=== PATIENT | male | born 1940 | race Caucasian/White ===

== ENCOUNTER 2020-03-25 11:03 | Outpatient (CLI) | payer MEDICARE, OTHER, SELFPAY ==
--- NOTE | ~2020-03-25 | MR_ITS ---
EXAMINATION: MR lumbar spine wo con DATE: 03/25/2020 12:01 INDICATION: Lumbar spondylosis, unspecified. TECHNIQUE: Magnetic resonance imaging (MRI) of the lumbar spine was performed without intravenous con trast. Sequences included sagittal T2-weighted FSE, sagittal T2-weighted FS FSE, sagittal T1-weighted FSE, and axial T2-weighted FSE. COMPARISON: Lumbar spine radiographs 02/26/2019 FINDINGS: There is 4 degrees levocurvature of lumbar spine. There is 4 mm retrolisthesis of L2 on L3, 3 mm retrolisthesis of L3 on L4, and 6 mm anterolisthesis of L4 on L5. Vertebral body heights are no rmal. There is severely decreased disc height at L2-L3 and L5-S1 and moderately decreased disc height at L1-L2, L3-L4, and L4-L5. The distal spinal cord signal intensity is normal. The conus medullaris is at L1. The following disc levels are specifically discussed: L1-L2: The disc is bulging. There is mild bilateral facet joint osteoarthritis. There is mild bilater al neural foraminal stenosis. There is mild central canal stenosis. L2-L3: The disc is bulging and has an annular fissure. There is mild bilateral facet joint osteoarthr itis. There is moderate bilateral neural foraminal stenosis. There is mild central canal stenosis. L3-L4: The disc is bulging and has an annular fissure. There is mild bilateral facet joint osteoarthr itis. There is moderate bilateral neural foraminal stenosis. There is mild central canal stenosis. L4-L5: The disc is bulging and has an annular fissure. There is severe bilateral facet joint osteoart hritis. There is moderate bilateral neural foraminal stenosis. There is mild central canal stenosis. L5-S1: The disc is bulging and has an annular fissure. There is moderate bilateral facet joint osteoa rthritis. There is moderate bilateral neural foraminal stenosis. There is mild central canal stenosis . IMPRESSION: 1. Severe lumbar spondylosis. Reviewed, dictated and finalized at location A.
== END 2020-03-25 11:04 | disposition home or self-care (01) ==
PROVIDERS: PCP Internal Medicine; Visit Provider Internal Medicine
DX: M47.896 Other spondylosis, lumbar region (principal)
CPT/HCPCS: 72148

== ENCOUNTER 2020-06-28 08:48 | Outpatient (CLI) | payer MEDICARE, OTHER, SELFPAY ==
--- NOTE | 2020-06-28 08:53 | ECHO_ITS ---
Patient Info Name: Jean Carlos Trinh Age: 80 years : 1940 Gender: Male Ht: 69 in Wt: 164 lbs BSA: 1.91 m2 HR: 72 bpm BP: 171 / 89 mmHg Technical Quality: Fair Exam Date: 06/28/2020 9:18 AM Exam Location: [facility] Patient Status: Outpatient Admit Date: 06/28/2020 Staff Ordering Physician: Dave Rain MD Hot Box Spotter: Santy Rebolledo RDCS, RT Attending Provider: Dave Rain MD Exam Type: CA echo doppler color flow Study Info Indications I35.0 - Nonrheumatic aortic (valve) stenosis Complete two-dimensional, color flow and Doppler transthoracic echocardiogram is performed. Strain analysis performed. Summary 1. Complete two-dimensional, color flow and Doppler transthoracic echocardiogram is performed. 2. Left ventricular chamber dimension is normal. 3. Ventricular septum is sigmoid shaped. No LVOT obstruction. 4. Left ventricular systolic function is normal, estimated at 65-70%. 5. There is mildly increased left ventricular wall thickness. 6. The left ventricular diastolic function is grade I diastolic dysfunction. 7. E/e' 13 is mildly elevated. 8. Global longitudinal strain is normal at -17.1%. 9. Left atrial chamber dimension is mildly enlarged. 10. The aortic valve is not well visualized. 11. There is moderate aortic valve sclerosis. 12. There is mild to moderate aortic valve stenosis based on a peak velocity of 241 cm/s, mean gradient of 14 mmHg, and aortic valve area of 1.4 cm2. 13. There is mild aortic valve regurgitation. 14. The mitral valve has moderately calcified leaflets and moderately calcified annulus. Left Ventricle Ventricular septum is sigmoid shaped. No LVOT obstruction. E/e' 13 is mildly elevated. Global longitudinal strain is normal at -17.1%. Left ventricular chamber dimension is normal. Left ventricular systolic function is normal, estimated at 65-70%. There is mildly increased left ventricular wall thickness. The left ventricular diastolic function is grade I diastolic dysfunction. Right Ventricle Right ventricular chamber dimension is normal. Right ventricular systolic function is normal. Left Atria Left atrial chamber dimension is mildly enlarged. Right Atria Right atrial chamber dimension is normal. Aortic Valve There is mild to moderate aortic valve stenosis based on a peak velocity of 241 cm/s, mean gradient of 14 mmHg, and aortic valve area of 1.4 cm2. Cannot determine number of aortic valve leaflets. The aortic valve is not well visualized. There is moderate aortic valve sclerosis. There is mild aortic valve regurgitation. Pulmonic Valve There is no pulmonic regurgitation. Mitral Valve The mitral valve has moderately calcified leaflets and moderately calcified annulus. There is no mitral valve stenosis. There is no mitral valve regurgitation. Tricuspid Valve There is no tricuspid valve regurgitation. Pericardium/Pleural There is no pericardial effusion. Inferior Vena Cava Normal inferior vena cava with >50% collapse upon inspiration consistent with normal right atrial pressure, 5 mmHg. Aorta The aortic root size at the sinus of Valsalva is normal. Left Ventricular Outflow Tract Name Value Normal LVOT 2D LVOT Diameter
== END 2020-06-28 08:49 | disposition home or self-care (01) ==
PROVIDERS: PCP Internal Medicine; Visit Provider Internal Medicine
DX: I35.0 Nonrheumatic aortic (valve) stenosis (principal); I35.1 Nonrheumatic aortic (valve) insufficiency; I36.1 Nonrheumatic tricuspid (valve) insufficiency; I34.0 Nonrheumatic mitral (valve) insufficiency
CPT/HCPCS: 93306

== ENCOUNTER 2020-10-28 09:08 | Outpatient (CLI) | payer MEDICARE, OTHER, SELFPAY ==
--- NOTE | ~2020-10-28 | CT_ITS ---
EXAMINATION: CT chest abdomen pelvis wo con DATE: 10/28/2020 09:51 INDICATION: Asbestos exposure. Shortness of breath. Nausea, diarrhea TECHNIQUE: Computed tomography (CT) of the chest, abdomen, and pelvis was performed without intraveno us contrast. Automated exposure control and iterative reconstruction technique were employed. Exam do se: 574.00 mGy-cm total exam DLP. COMPARISON: None FINDINGS: CHEST CT: Heart size is normal. Prominent coronary artery calcifications. Normal caliber of the thoracic aorta. There are thoracic aortic and great vessel atherosclerotic calcifications. Normal size and homogeneous density of the thyroid gland. No hilar or mediastinal mass lesion or lymphadenopathy. No pericardial or pleural effusion. Small sli ding hiatal hernia. There are occasional calcified pleural plaques in the posterior mid and lower left thorax, consistent with prior asbestos exposure. No pulmonary infiltrate or consolidation or pulmonary mass lesion. ABDOMEN/PELVIS CT: There are calcifications of the head and uncinate process and body of the pancreas, consistent with c hronic pancreatitis. The liver, gallbladder, bile ducts, spleen, pancreas and pancreatic duct are unremarkable otherwise. Normal morphology of the adrenal glands. 2.7 mm nonobstructing mid left renal calculus. 5 mm and 3 mm nonobstructing lower pole left renal calculi. Probable focal arterial calcification in the lower pole of the right kidney. There are stones in the dependent aspect of both sides of the urinary bladder, measuring 3 mm on the right Up to 9 mm on the left. There is prostate enlargement and prominent prostate calcification. There is extensive atherosclerotic calcification of the abdominal aorta and prominent calcification a t the origins of the renal arteries. No abdominal aortic aneurysm. Iliac and femoral artery calcifica tions. No intraperitoneal or retroperitoneal or pelvic mass lesion or adenopathy or ascites. Normal appendix. Diverticulosis of the sigmoid and descending colon and to a lesser extent right colon. No CT evidence of diverticulitis. No bowel obstruction, bowel wall thickening, pneumatosis or intraperitoneal free air. No suspicious osteolytic or osteoblastic lesions are noted. There is degenerative disc disease throug hout the lumbar and lumbosacral area. There is grade 1 anterolisthesis at L4-5 due to degenerative ch jolie at the apophyseal joints. IMPRESSION: Calcified pleural plaques in the mid and lower posterior left chest, consistent with jagdish or asbestos exposure Pancreatic calcifications suggesting chronic pancreatitis Left nonobstructing nephrolithiasis Bladder stones Diverticulosis of the colon Reviewed, dictated and finalized at Location A. Reviewed, dictated and finalized at location B. 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
== END 2020-10-28 09:09 | disposition home or self-care (01) ==
LOC: ANHIMG 09:12
PROVIDERS: PCP Internal Medicine; Visit Provider Internal Medicine
DX: R19.4 Change in bowel habit (principal); Z77.090 Contact with and (suspected) exposure to asbestos; R91.8 Other nonspecific abnormal finding of lung field; N20.0 Calculus of kidney; N21.0 Calculus in bladder; K57.90 Diverticulosis of intestine, part unspecified, without perforation or abscess without bleeding
CPT/HCPCS: 71250; 74176

== ENCOUNTER 2021-01-06 09:20 | Outpatient (CLI) | payer MEDICARE, OTHER, SELFPAY ==
[2021-01-06 10:30] VITALS: PULSE 91; O2SAT 98
[2021-01-06 10:35] VITALS: PULSE 112; O2SAT 95
[2021-01-06 10:45] VITALS: PULSE 93; O2SAT 98
--- NOTE | 2021-01-09 12:41 | WPDPFTINT ---
PFT Procedure Performed PFT Procedure Performed Spirometry with Pre/Post Bronchodilator Plethysmography (Lung Vol) Diffusing Cap (DLCO) Flow Vol Loop PFT Interpretation This is a pulmonary function test with pre and post-bronchodilator spirometry, plethysmography and diffusing capacity. The test was performed and results interpreted in accordance with the 2019 and 2005 ATS/ERS Task Force guidelines respectively using the Global Lung Function Initiative-2012 reference equations. Patient demonstrated good effort and cooperation. Reproducibility criteria were met. The quality of the pre bronchodilator spirometry maneuver was Grade C and post bronchodilator spirometry maneuver was Grade A. Findings: Spirometry: The expiratory flow tracing demonstrates the mid expiratory plateau in airflow creating a mild convex inflection referred to as the knee pattern the contour the inspiratory flow tracing is normal. This was reproducible on 1 of 3 pre bronchodilator efforts and 3 of 4 post bronchodilator efforts. in addition there is decreased maximal expiratory airflow at all lung volumes with a concave expiratory flow tracing. The pre bronchodilator FVC is 3.62 L, 98% predicted. The pre bronchodilator FEV1 is 2.32 L, 85% predicted. The FEV1: FVC ratio 64%. The post bronchodilator FVC is 3.37 L, representing a 7% decrease. The post bronchodilator FEV1 is 2.61 L, representing a 13% increase. Plethysmography: The total lung capacity is 6.55 L, 96% predicted. The functional residual capacity is 3.33 L, 90% predicted. The residual volume is 2.66 L, 101% predicted. Diffusing capacity: The absolute diffusion capacity is 20.0, 87% predicted. The diffusing capacity corrected for alveolar volume is 3.46, 95% predicted. Impression: The expiratory flow tracing demonstrates a reproducible mid explored expiratory plateau in airflow creating a convex inflection referred to as the knee pattern in 1 of 3 pre bronchodilator and 3 of 4 post bronchodilator efforts. This pattern can be a normal variant or pathologic and has been attributed to a choke point section of the bronchial tree. The normal variant is more common in younger female patients, decreases with age and is more pronounced in the post bronchodilator efforts. The pattern has also been described with kyphosis, kyphoscoliosis, central obstructing mass, and post lung transplantation. Clinical correlation is recommended. There is a mild obstructive abnormality with significant improvement after inhaling a single dose of albuterol. The lung volumes are normal. The diffusing capacity is normal. There are no prior studies for comparison
--- NOTE | 2021-02-14 11:36 | HOMEO2EVAL ---
Evaluation was performed at [facility]
== END 2021-01-06 09:21 | disposition home or self-care (01) ==
PROVIDERS: PCP Internal Medicine; Visit Provider Internal Medicine Pulmonary Disease
DX: R06.00 Dyspnea, unspecified (principal); R94.2 Abnormal results of pulmonary function studies
CPT/HCPCS: 94060; 94618; 94726; 94729

== ENCOUNTER 2021-01-10 12:44 | Outpatient (CLI) | payer MEDICARE, OTHER, SELFPAY | END 2021-01-10 12:45 | disposition home or self-care (01) | LOC: ANHAUDIO 12:47 | PROVIDERS: PCP Internal Medicine; Visit Provider Otolaryngology | DX: H90.3 Sensorineural hearing loss, bilateral (principal) | CPT/HCPCS: 92557; 92567 ==

== ENCOUNTER 2021-02-13 13:17 | Outpatient (CLI) | payer MEDICARE, OTHER, SELFPAY ==
--- NOTE | ~2021-02-13 | XR_ITS ---
XR abdomen/kub 1V 02/13/2021 13:43 Indication: Bladder stones Procedure: KUB Comparison: CT dated 10/28/2020 Findings: Bowel gas pattern is nonobstructive. There are calcifications in the pelvis, likely bladder stones. Lung bases unremarkable. Moderate lumbar spondylosis. Impression: 1: Calcifications in the pelvis are likely bladder stones. Reviewed, dictated and finalized at location B. Impression: 1: Calcifications in the pelvis are likely bladder stones.
== END 2021-02-13 13:18 | disposition home or self-care (01) ==
PROVIDERS: PCP Internal Medicine; Visit Provider Urology
DX: Z87.448 Personal history of other diseases of urinary system (principal); R93.49 Abnormal radiologic findings on diagnostic imaging of other urinary organs
CPT/HCPCS: 74018

== ENCOUNTER 2021-02-28 12:56 | Outpatient (CLI) | payer MEDICARE, OTHER, SELFPAY ==
--- NOTE | ~2021-02-28 | CT_ITS ---
EXAMINATION: CT soft tissue neck chest wo DATE: 02/28/2021 13:17 INDICATION: Dysphagia. Chronic obstructive pulmonary disease. Shortness of breath and cough. TECHNIQUE: Computed tomography (CT) of the neck and chest was performed without intravenous contrast. Automated exposure control and iterative reconstruction technique were employed. The dose-length pro duct was 780.98 mGy-cm. COMPARISON: Chest CT 10/28/2020 FINDINGS: CT NECK: There are no pathologically enlarged lymph nodes. The pharyngeal mucosal space is unremarkab le. The paranasal sinuses are clear. The mastoid air cells are normal. There is severe cervical spond ylosis. CT CHEST: There are calcified pleural plaques on the left. A calcified left lung nodule is consistent with old granulomatous disease. There is mild atelectasis bilaterally. No pleural effusion. The hear t size is normal. There are coronary artery calcifications. There are calcifications of the aortic va lve. No pericardial effusion. There is mild bilateral gynecomastia. There is a small sliding hiatal h ernia. There is mild thoracic spondylosis. IMPRESSION: 1. Small sliding hiatal hernia. Reviewed, dictated and finalized at location A.
== END 2021-02-28 12:57 | disposition home or self-care (01) ==
LOC: ANHIMG 12:59
PROVIDERS: PCP Internal Medicine; Visit Provider Internal Medicine Pulmonary Disease
DX: J44.9 Chronic obstructive pulmonary disease, unspecified (principal); K44.9 Diaphragmatic hernia without obstruction or gangrene
CPT/HCPCS: 70490; 71250

== ENCOUNTER 2021-07-14 12:34 | Outpatient (CLI) | payer MEDICARE, OTHER, SELFPAY ==
--- NOTE | 2021-07-14 12:41 | ECHO_ITS ---
Patient Info Name: Jean Carlos Trinh Age: 81 years : 1940 Gender: Male Ht: 69 in Wt: 165 lbs BSA: 1.92 m2 HR: 76 bpm BP: 143 / 78 mmHg Technical Quality: Good Exam Date: 07/14/2021 12:56 PM Exam Location: [facility] Patient Status: Outpatient Admit Date: 07/14/2021 Staff Ordering Physician: Quang Bahena DO Dry Cell And Battery Assembler: Felicitas Lima RDCS Attending Provider: Quang Bahena DO Referring Physician: Josef JORGENSEN; Exam Type: CA echo doppler color flow Study Info Indications I35.0 - Nonrheumatic aortic (valve) stenosis Complete two-dimensional, color flow and Doppler transthoracic echocardiogram is performed. Summary 1. Complete two-dimensional, color flow and Doppler transthoracic echocardiogram is performed. 2. Left ventricular chamber dimension is normal. 3. Left ventricular systolic function is normal, estimated at 60-65%. 4. The left ventricular diastolic function is grade I diastolic dysfunction. 5. E/e' 11 is mildly elevated. 6. Left atrial chamber dimension is mildly enlarged. 7. There is severe aortic valve sclerosis. 8. There is moderate aortic valve stenosis with a peak velocity of 245 cm/s, mean gradient of 14 mmHg, and aortic valve area of 1.5 cm2. 9. There is mild aortic valve regurgitation. 10. The mitral valve has moderately calcified leaflets and mildly calcified annulus. 11. No pulmonary hypertension, estimated pulmonary arterial systolic pressure is 35 mmHg. Left Ventricle E/e' 11 is mildly elevated. Left ventricular chamber dimension is normal. Left ventricular systolic function is normal, estimated at 60-65%. The left ventricular diastolic function is grade I diastolic dysfunction. Right Ventricle Right ventricular chamber dimension is normal. Right ventricular systolic function is normal. Left Atria Left atrial chamber dimension is mildly enlarged. Right Atria Right atrial chamber dimension is normal. Aortic Valve The aortic valve is trileaflet. There is severe aortic valve sclerosis. There is moderate aortic valve stenosis with a peak velocity of 245 cm/s, mean gradient of 14 mmHg, and aortic valve area of 1.5 cm2. There is mild aortic valve regurgitation. Pulmonic Valve There is no pulmonic regurgitation. Mitral Valve The mitral valve has moderately calcified leaflets and mildly calcified annulus. There is no mitral valve stenosis. There is no mitral valve regurgitation. Tricuspid Valve There is no tricuspid valve regurgitation. No pulmonary hypertension, estimated pulmonary arterial systolic pressure is 35 mmHg. Pericardium/Pleural There is no pericardial effusion. Inferior Vena Cava Normal inferior vena cava with >50% collapse upon inspiration consistent with normal right atrial pressure, 5 mmHg. Aorta The aortic root size at the sinus of Valsalva is normal. Left Ventricular Outflow Tract Name Value Normal LVOT 2D LVOT Diameter 2.1 cm LVOT Doppler LVOT Peak Gradient 3 mmHg LVOT Mean Gradient 2 mmHg LVOT VTI 23 cm LVOT VTI/AV VTI Ratio
== END 2021-07-14 12:35 | disposition home or self-care (01) ==
LOC: ANHCARD 12:38
PROVIDERS: PCP Internal Medicine; Visit Provider Internal Medicine Cardiovascular Disease
DX: I35.0 Nonrheumatic aortic (valve) stenosis (principal); I35.1 Nonrheumatic aortic (valve) insufficiency
CPT/HCPCS: 93306

== ENCOUNTER 2022-01-31 11:24 | Outpatient (CLI) | payer MEDICARE, OTHER, SELFPAY ==
--- NOTE | ~2022-01-31 | XR_ITS ---
EXAMINATION: XR hand BI arthritis min 3V DATE: 01/31/2022 11:53 INDICATION: Chronic pain in the hands. TECHNIQUE: 4 views of right hand and 4 views of left hand were obtained. COMPARISON: None. FINDINGS: RIGHT HAND: Bone alignment is normal. No fracture. There is mild osteoarthritis of distal radioulnar joint, severe osteoarthritis of triscaphe joint, and mild osteoarthritis of first carpometacarpal maria elena nt, first and second metacarpophalangeal joints, and most of the interphalangeal joints. LEFT HAND: Bone alignment is normal. No fracture. There is mild osteoarthritis of distal radioulnar j oint, severe osteoarthritis of triscaphe joint, moderate osteoarthritis of first carpometacarpal join t, and mild osteoarthritis of first metacarpophalangeal joint and second-fifth distal interphalangeal joints. IMPRESSION: 1. Polyarticular osteoarthritis. Reviewed, dictated and finalized at location A.
== END 2022-01-31 11:25 | disposition home or self-care (01) ==
PROVIDERS: PCP Internal Medicine; Visit Provider Internal Medicine
DX: M19.041 Primary osteoarthritis, right hand (principal)
CPT/HCPCS: 73130

== ENCOUNTER 2022-07-16 09:37 | Outpatient (CLI) | payer MEDICARE, OTHER, SELFPAY ==
--- NOTE | 2022-07-16 09:53 | ECHO_ITS ---
Patient Info Name: Jean Carlos Trinh Age: 82 years : 1940 Gender: Male Ht: 69 in Wt: 164 lbs BSA: 1.91 m2 HR: 81 bpm BP: 143 / 81 mmHg Technical Quality: Fair Exam Date: 07/16/2022 10:42 AM Exam Location: [facility] Patient Status: Outpatient Admit Date: 07/16/2022 Staff Ordering Physician: Quang Bahena DO Manager Acquisition: Santy Rebolledo RDCS, RT Attending Provider: Quang Bahena DO Referring Physician: oJsef JORGENSEN; Exam Type: CA echo dop color flow w con Study Info Indications I35.0 - Nonrheumatic aortic (valve) stenosis Complete two-dimensional, color flow and Doppler transthoracic echocardiogram is performed. Strain analysis performed. Summary 1. Complete two-dimensional, color flow and Doppler transthoracic echocardiogram is performed. 2. Left ventricular chamber dimension is normal. 3. Left ventricular systolic function is normal, estimated at 60-65%. 4. There is mildly increased left ventricular wall thickness. 5. The left ventricular diastolic function is grade I diastolic dysfunction. 6. E/e' 10 is mildly elevated. 7. Global longitudinal strain is normal at -19.7%. 8. The aortic valve is not well visualized. Cannot determine number of aortic valve leaflets. 9. There is severe aortic valve stenosis based on a peak velocity of 291.38 cm/s, mean gradient of 19 mmHg, and aortic valve area of 0.89 cm2. 10. There is severe aortic valve sclerosis. 11. There is mild aortic valve regurgitation. 12. The mitral valve has moderate calcified leaflets and mildly calcified annulus. 13. No pulmonary hypertension, estimated pulmonary arterial systolic pressure is 31 mmHg. Left Ventricle E/e' 10 is mildly elevated. Global longitudinal strain is normal at -19.7%. Left ventricular chamber dimension is normal. Left ventricular systolic function is normal, estimated at 60-65%. There is mildly increased left ventricular wall thickness. The left ventricular diastolic function is grade I diastolic dysfunction. Right Ventricle Right ventricular systolic function is normal and with normal TAPSE 2.3 cm. Right ventricular chamber dimension is normal. Left Atria Left atrial chamber dimension is normal. Right Atria Right atrial chamber dimension is normal. Aortic Valve The aortic valve is not well visualized. Cannot determine number of aortic valve leaflets. There is severe aortic valve stenosis based on a peak velocity of 291.38 cm/s, mean gradient of 19 mmHg, and aortic valve area of 0.89 cm2. There is severe aortic valve sclerosis. There is mild aortic valve regurgitation. Pulmonic Valve There is no pulmonic regurgitation. Mitral Valve The mitral valve has moderate calcified leaflets and mildly calcified annulus. There is no mitral valve stenosis. There is no mitral valve regurgitation. Tricuspid Valve There is no tricuspid valve regurgitation. No pulmonary hypertension, estimated pulmonary arterial systolic pressure is 31 mmHg. Pericardium/Pleural There is no pericardial effusion. Inferior Vena Cava Normal inferior vena cava with >50% collapse upon inspiration consistent with normal right atrial pressure, 5 mmHg. Aorta The aortic root size at the sinus of Valsalva is normal. Left Ventricular Outflow Tract Name Value Normal LVOT 2D
== END 2022-07-16 09:38 | disposition home or self-care (01) ==
LOC: ANHCARD 09:43
PROVIDERS: PCP Internal Medicine; Visit Provider Internal Medicine Cardiovascular Disease
DX: I35.0 Nonrheumatic aortic (valve) stenosis (principal); I35.1 Nonrheumatic aortic (valve) insufficiency; I34.0 Nonrheumatic mitral (valve) insufficiency
CPT/HCPCS: 93306

== ENCOUNTER 2022-12-05 15:15 | Outpatient (CLI) | payer MEDICARE, OTHER, SELFPAY ==
--- NOTE | ~2022-12-05 | XR_ITS ---
XR chest 2V DATE: 12/05/2022 15:30 INDICATION: Shortness of breath. Abnormal weight loss. TECHNIQUE: PA and lateral views COMPARISON: October 28, 2020 CT chest abdomen pelvis FINDINGS: Normal heart size. Aortic calcification. Small hiatal hernia. No hilar or mediastinal enlargement. No pulmonary infiltrate or consolidation, pleural effusion or pu lmonary vascular congestion or pneumothorax is detected. Degenerative spurring of the thoracic spine. IMPRESSION: No active cardiopulmonary disease Small hiatal hernia Reviewed, dictated and finalized at location B.
== END 2022-12-05 15:16 | disposition home or self-care (01) ==
LOC: ANHIMG 15:20
PROVIDERS: PCP Internal Medicine; Visit Provider Nurse Practitioner
DX: R63.4 Abnormal weight loss (principal); K44.9 Diaphragmatic hernia without obstruction or gangrene
CPT/HCPCS: 71046

== ENCOUNTER 2023-01-22 09:30 | Outpatient (CLI) | payer MEDICARE, OTHER, SELFPAY ==
--- NOTE | 2023-01-22 10:23 | ECHO_ITS ---
Patient Info Name: Jean Carlos Trinh Age: 82 years : 1940 Gender: Male Ht: 69 in Wt: 165 lbs BSA: 1.92 m2 HR: 60 bpm Technical Quality: Fair Exam Date: 01/22/2023 10:33 AM Exam Location[facility] Patient Status: Outpatient Admit Date: 01/22/2023 Staff Ordering Physician: Quang Bahena DO Self Propelled Mining Machine Operator: Janette Boone RDCS Attending Provider: Quang Bahena DO Referring Physician: Josef JORGENSEN; Exam Type: CA echo doppler color flow Study Info Indications I35.0 - Nonrheumatic aortic (valve) stenosis Complete two-dimensional, color flow and Doppler transthoracic echocardiogram is performed. Summary 1. Complete two-dimensional, color flow and Doppler transthoracic echocardiogram is performed. 2. Left ventricular chamber dimension is normal. 3. Left ventricular systolic function is normal, estimated at 65-70%. 4. The left ventricular diastolic function is grade I diastolic dysfunction. 5. E/e' 14 is mildly elevated. 6. Left atrial chamber dimension is mildly enlarged. 7. There is moderate aortic valve sclerosis. 8. There is mild aortic valve stenosis with a peak velocity of 236 cm/s, mean gradient of 12 mmHg, and aortic valve area of 1.6 cm2. 9. There is mild aortic valve regurgitation. 10. The mitral valve has moderately calcified leaflets and mildly calcified annulus. 11. There is trace tricuspid valve regurgitation. 12. No pulmonary hypertension, estimated pulmonary arterial systolic pressure is 33 mmHg. Left Ventricle E/e' 14 is mildly elevated. Left ventricular chamber dimension is normal. Left ventricular systolic function is normal, estimated at 65-70%. The left ventricular diastolic function is grade I diastolic dysfunction. Right Ventricle Right ventricular systolic function is normal and with normal TAPSE 2.3 cm. Right ventricular chamber dimension is normal. Left Atria Left atrial chamber dimension is mildly enlarged. Right Atria Right atrial chamber dimension is normal. Aortic Valve The aortic valve is trileaflet. There is moderate aortic valve sclerosis. There is mild aortic valve stenosis with a peak velocity of 236 cm/s, mean gradient of 12 mmHg, and aortic valve area of 1.6 cm2. There is mild aortic valve regurgitation. Pulmonic Valve There is no pulmonic regurgitation. Mitral Valve The mitral valve has moderately calcified leaflets and mildly calcified annulus. There is no mitral valve stenosis. There is no mitral valve regurgitation. Tricuspid Valve There is trace tricuspid valve regurgitation. No pulmonary hypertension, estimated pulmonary arterial systolic pressure is 33 mmHg. Pericardium/Pleural There is no pericardial effusion. Inferior Vena Cava Normal inferior vena cava with >50% collapse upon inspiration consistent with normal right atrial pressure, 5 mmHg. Aorta The aortic root size at the sinus of Valsalva is normal. Left Ventricular Outflow Tract Name Value Normal LVOT 2D LVOT Diameter 2.1 cm LVOT Doppler LVOT Peak Gradient 3 mmHg LVOT Mean Gradient 1 mmHg LVOT VTI 24 cm LVOT VTI/AV VTI Ratio 0.4 LVOT Stroke Volume
== END 2023-01-22 09:31 | disposition home or self-care (01) ==
LOC: ANHCARD 09:31
PROVIDERS: PCP Family Medicine; Visit Provider Internal Medicine Cardiovascular Disease
DX: I35.0 Nonrheumatic aortic (valve) stenosis (principal); I35.1 Nonrheumatic aortic (valve) insufficiency; I34.2 Nonrheumatic mitral (valve) stenosis
CPT/HCPCS: 93306

== ENCOUNTER 2023-01-30 11:22 | Outpatient (CLI) | payer MEDICARE, OTHER, SELFPAY ==
--- NOTE | ~2023-01-30 | PE_ITS ---
EXAMINATION: PET_PETPSMAST_PT DATE: 01/30/2023 14:09 INDICATION: Gastric cancer TECHNIQUE: 8.666 mCi of pipflufolastat F-18 (18-F-DCFPyL) was administered i.v. Low dose computed to mography (CT) images were acquired from the base of the brain to the base of the brain to the proxima l thighs for attenuation correction and anatomic localization. Positron emission tomography (PET) nasima ges were acquired in the same distribution beginning 66 minutes after injection. Images including fus ed PET/CT images were reconstructed in axial, coronal, and sagittal planes. Automated exposure contro l technique was employed. The dose-length product was 512.48mGy-cm. COMPARISON: CT chest, abdomen and pelvis dated 10/28/2020 FINDINGS: Head/neck: Typical pattern of symmetric physiologic increased activity in the lacrimal, parotid and submandibula r glands as well as along the mucosa of the nasal and oral cavities, the alex-, naso- and hypopharynx, the glottis and esophagus. No pathologically enlarged cervical lymphadenopathy or suspicious foci of increased uptake in the visualized head or neck. Chest: There are few small calcified pleural plaques in the posterior left hemithorax likely sequela of prio r exudative effusion. No suspicious pulmonary nodules, pneumonia, pulmonary edema or pleural effusion . Heart size is normal. Atherosclerotic coronary artery calcifications. Aortic valve calcification. N o pericardial effusion. Small heterotopic ossicle versus calcified lymph node in the anterior paracar dial fat. Thoracic aorta is normal in caliber. No pathologically enlarged or PSMA avid thoracic lymph adenopathy. Small sliding-type hiatal hernia. Abdomen/pelvis/proximal thighs: Physiologic renal accumulation and excretion of activity in the kidneys, bladder and along portions o f ureters. Normal degree and slightly heterogenous pattern of increased uptake throughout the liver a nd spleen without radiologic correlate or dominant PSMA avid lesion. The gallbladder, pancreas and bi lateral adrenal glands are normal. Mild to moderate uptake scattered throughout the bowels with typic al duodenal and proximal jejunal predominance and without radiologic correlate, also likely physiolog ic. There are few scattered colonic diverticula without adjacent inflammatory change to suggest diver ticulitis. Normal appendix. Prostatomegaly measuring 5.0 x 4.2 cm in transaxial dimensions. There are central coarse calcifications. There are regions of peripheral increased PSA may uptake on the left, anterior and right sides of the more inferior prostate and extending more posteriorly and cephalad o n the right towards the junction with but not definitively involving the right seminal vesicle. The m aximal SUV value of the prosthetic uptake is 30.6. No other abnormal foci of increased uptake or path ologically enlarged lymphadenopathy in the abdomen, pelvis or proximal thighs. Musculoskeletal: Moderate thoracic and severe cervical and lumbar spondylosis. No suspicious lytic, blastic or PSMA av id bone lesions. IMPRESSION: 1. Regions of prominent increased PSMA activity in the prostate consistent with provided history of p rostate cancer. No evident metastatic disease. Reviewed, dictated and finalized at location A. IMPRESSION: 1. Regions of prominent increased PSMA activity in the prostate consistent with provided history of prostate cancer. No evident metastatic disease.
== END 2023-01-30 11:23 | disposition home or self-care (01) ==
PROVIDERS: PCP Family Medicine; Visit Provider Urology
DX: C61 Malignant neoplasm of prostate (principal)
CPT/HCPCS: 78815; A9595

== ENCOUNTER 2023-02-05 09:47 | Outpatient (CLI) | payer MEDICARE, OTHER, SELFPAY ==
--- NOTE | 2023-02-05 11:00 | NEURO_ITS ---
Impression: # Complains of numbness and decreased strength of hands. # Severe right Carpal Tunnel Syndrome. # Moderate left Carpal Tunnel Syndrome. # Right ulnar neuropathy around the elbow. # Abnormal needle/EMG exam without fibs. Nerve Conduction Studies Anti Sensory Summary Table Stim Site NR Peak (ms) P-T Amp (?V) Site1 Site2 Delta-P (ms) Dist (cm) Domenico (m/s) Left Median Anti Sensory (2-3nd Digit) NO RESPONSE Wrist NR Wrist 2-3nd Digit 14.0 Wrist 8.2 5.9 Wrist 2-3nd Digit 14.0 Right Median Anti Sensory (2-3nd Digit) Wrist 4.9 9.7 Wrist 2-3nd Digit 4.9 14.0 29 Wrist 6.1 5.7 Wrist 2-3nd Digit 4.9 14.0 29 Left Radial Anti Sensory (Base 1st Digit) Wrist 2.3 13.0 Wrist Base 1st Digit 2.3 0.0 Right Radial Anti Sensory (Base 1st Digit) Wrist 3.2 18.1 Wrist Base 1st Digit 3.2 0.0 Left Ulnar Anti Sensory (5th Digit) Wrist 2.4 23.6 Wrist 5th Digit 2.4 14.0 58 Right Ulnar Anti Sensory (5th Digit) Wrist 3.8 17.2 Wrist 5th Digit 3.8 14.0 37 Motor Summary Table Stim Site NR Onset (ms) O-P Amp (mV) Site1 Site2 Delta-0 (ms) Dist (cm) Domenico (m/s) Left Median Motor (Abd Poll Brev) Wrist 6.3 1.4 Elbow Wrist 5.3 31.0 58 Elbow 11.6 3.2 Right Median Motor (Abd Poll Brev) NO RESPONSE Wrist NR Elbow Wrist 26.0 Elbow NR Left Ulnar Motor (Abd Dig Minimi) Wrist 3.8 2.5 A Elbow Wrist 5.6 32.0 57 A Elbow 9.4 1.7 Right Ulnar Motor (Abd Dig Minimi) Wrist 3.7 4.4 A Elbow Wrist 6.5 32.0 49 A Elbow 10.2 3.3 B Elbow Wrist 3.3 21.0 64 B Elbow 7.0 3.6 F Wave Studies NR F-Lat (ms) L-R F-Lat (ms) Left Median (Mrkrs) (Abd Poll Brev) 29.59 Right Median (Mrkrs) (Abd Poll Brev) DISPERSED RESPONSE NR Left Ulnar (Mrkrs) (Abd Dig Min) 28.76 4.07 Right Ulnar (Mrkrs) (Abd Dig Min) 32.83 4.07 EMG Side Muscle Nerve Root Ins Act Fibs Amp Dur Recrt Comment Right 1stDorInt Ulnar C8-T1 Nml Nml Decr >12ms Reduced Right Ext Indicis Radial (Post Int) C7-8 Nml Nml Nml Nml Nml Right Ext Digitorum Radial (Post Int) C7-8 Nml Nml Nml Nml Nml Right BrachioRad Radial C5-6 Nml Nml Nml Nml Reduced Right PronatorTeres Median C6-7 Nml Nml Nml Nml Reduced Right Abd Poll Brev Median C8-T1 Nml Nml Decr >12ms Reduced Left 1stDorInt Ulnar C8-T1 Nml Nml Nml Nml Nml Left Ext Indicis Radial (Post Int) C7-8 Nml Nml Nml Nml Nml Left Ext Digitorum Radial (Post Int) C7-8 Nml Nml Nml Nml Nml Left BrachioRad Radial C5-6 Nml Nml Nml Nml Reduced Left PronatorTeres Median C6-7 Nml Nml Nml Nml Reduced Left Abd Poll Brev Median C8-T1 Nml Nml Decr >12ms Reduced Right ABD Dig Min Ulnar C8-T1 Nml Nml Decr >12ms Reduced Left ABD Dig Min Ulnar C8-T1 Nml Nml Nml Nml Nml MTDD
== END 2023-02-05 09:48 | disposition home or self-care (01) ==
LOC: ANHNEURO 09:49
PROVIDERS: PCP Family Medicine; Visit Provider Plastic Surgery
DX: R20.2 Paresthesia of skin (principal); G56.03 Carpal tunnel syndrome, bilateral upper limbs; G56.21 Lesion of ulnar nerve, right upper limb
CPT/HCPCS: 95886; 95911

== ENCOUNTER 2023-04-24 00:37 | Day surgery (SDC) | payer MEDICARE, OTHER, SELFPAY ==
--- NOTE | 2023-04-17 14:32 | PC.NURSE ---
Report to the Outpatient Waiting Room, entrance under the green pavilion located off [facility], at time __0700 on date __04/24/23 . Planned Procedure Time: __0900 . Time changes happen often and if your time is changed the preop area will call you the afternoon before. - You and your visitor will be asked to self-screen and do not enter if you have any COVID symptoms. - A mask is optional within the hospital at this time. Patients may have clear liquids (water, carbonated beverages, clear teas, apple juice) until 3 hours prior to surgery with a maximum of 20 ounces. - No food from midnight until time of surgery - Infants may have breast milk until 4 hours before surgery, infant formula 6 hours prior to surgery. - Children will be allowed to drink immediately following surgery. If applicable, please bring a bottle or sippy cup to assist with drinking. Juice, water, soda, and popsicles are readily available. For infants on formula, please bring formula the day of surgery. Pacifiers are allowed. Take the following medications with a SIP of water the morning of surgery: __NEBULIZER, DO NOT STOP ANY OF YOUR OTHER PRESCRIPTION MEDICATIONS PRIOR TO SURGERY ?EXCEPT THE FOLLOWING Medications to discontinue per physician ___ALL VITAMINS AND SUPPLEMENTS 3 DAYS PRE OP.LAST DOSE 04/21/23 Please no make-up, nail malian, hairspray, perfume, deodorant, or body powder the day of surgery. No jewelry (including any body piercings) or valuables the day of surgery, leave them at home. Please take a shower or bath the night before, or the morning of, surgery with an antibacterial soap. Wear comfortable, loose fitting clothing. Children are encouraged to wear pajamas. - Jewelry must be removed prior to entering the operating room. Rings and piercings that are not removed may be cut off. - The hospital will not accept responsibility for valuables. - Please leave all valuables, including medications, at home the day of surgery. If you are going home after surgery, a licensed intermodal truck driver must drive you home. - NO public transportation without another adult if you receive anesthesia. - We recommend that an adult stay with you for 24 hours following discharge. - We also recommend that you do not drive, make important decision, drink alcoholic beverages, or take any drugs that were not prescribed by your health care provider for at least 24 hours after your discharge time. For Pediatric surgeries, we recommend two adults accompany the child home. Follow any additional instructions given to you from your surgeon. If you or anyone in your household have experienced Covid symptoms in the past week, please notify your surgeon or the nurse liaison at the phone number below for possible testing. Telephone instructions given to __PT'S ANGELINA and asked if any additional questions and then verbalized understanding. Patient advised to call surgeon office or pre surgery nurse liaison [phone] if any additional questions.
[2023-04-17 14:41] VITALS: BMI 24.0
[2023-04-24 07:30] VITALS: BP 124/66; PULSE 62; RESP 16; TEMP 36.1; O2SAT 98
--- NOTE | 2023-04-24 08:06 | WPDANESEPPF ---
Anes - Initial Pre Proc Eval Procedure: Operation Date: 04/24/23 09:00 Proposed Procedures p Right Open Carpal Tunnel Release and Right Ulnar Neuroplasty at the Elbow - Walt Morris MD Date/Time: 04/24/23 08:06 Surgeon: Walt Morris MD Pre Op Diagnosis: Rt Carpal Tunnel / Rt Ulnar Patient Data Age: 82 Gender: M Height: 1.75 m Weight: 74.8 kg Last Vital Signs Temp 36.1 C L 04/24/23 07:30 Pulse 62 04/24/23 07:30 Resp 16 04/24/23 07:30 BP 124/66 04/24/23 07:30 Pulse Ox 98 04/24/23 07:30 O2 Del Method Room Air 04/24/23 07:30 Allergies Allergy/AdvReac Type Severity Reaction Status Date / Time No Known Allergies Allergy Verified 04/24/23 07:52 Home Medications Medication Instructions Recorded Confirmed Type aspirin 81 mg tablet,delayed 81 mg PO DAILY 11/13/19 04/17/23 History release (Adult Low Dose Aspirin) omega-3 fatty acids 1,000 mg 1,000 mg PO DAILY 03/17/21 04/17/23 History capsule (Fish Oil Concentrate) cholecalciferol (vitamin D3) 125 1,000 unit PO DAILY 09/14/21 04/17/23 History mcg (5,000 unit) capsule losartan 50 mg tablet 50 mg PO DAILY #90 tabs 07/06/22 04/17/23 Rx albuterol sulfate 90 mcg/actuation 1 - 2 puff inhalation Q4-6H PRN 07/17/22 04/17/23 Rx aerosol inhaler shortness of breath or wheezing #8.5 grams mirtazapine 15 mg tablet See Rx Instructions .Route 12/11/22 04/17/23 Rx .COMPLEX #90 tabs omeprazole 40 mg capsule,delayed 40 mg PO DAILY #90 caps 12/31/22 04/17/23 Rx release rosuvastatin 5 mg tablet See Rx Instructions .Route 02/13/23 04/17/23 Rx .COMPLEX #90 tabs albuterol sulfate 2.5 mg/3 mL 2.5 mg (3 mL) inhalation QID PRN 03/07/23 04/17/23 Rx (0.083 %) solution for nebulization shortness of breath or wheezing #360 mL ondansetron 4 mg disintegrating 4 mg PO BID PRN nausea and 03/07/23 04/17/23 Rx tablet vomiting #30 tabs hydrochlorothiazide 12.5 mg tablet See Rx Instructions .Route 03/20/23 04/17/23 Rx .COMPLEX #90 tabs acetaminophen 325 mg capsule 650 mg PO BID 04/17/23 04/17/23 History (Tylenol) Patient hx anesthesia problems: none Family hx anesthesia problems: none Results Review: All pre-operative results and documents have been reviewed as part of the pre-operative evaluation. 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 Other chronic pain Primary osteoarthritis involving multiple joints Rash Skin lesion Family History Family History Father Cerebrovascular accident Alcoholism Mother Diabetes mellitus Sibling Cancer Hypertension Heart disease Other Cancer Other Family history of alcoholism Family history of arthritis Social History Social History Smoking packs per day: 3 Smoking cigarettes per day: 60.0 Years smoked: 16 Smoking pack-years: 48.00 Smoking status: Former smoker Tobacco type: cigarettes Smoking end date: 09/09/73 Alcohol intake: never Substance use: never Substance use type: does not use Living arrangements: with family Spiritual care concerns: No Anes - Eval Final PreProcedure Day of Procedure 04/24/23 08:06 Patient weight: normal Heart: regular rate and rhythm and murmur Lungs: decreased breath sounds Airway: Mallampati scale class II Neurological: other (alert) Last oral intake: >/= 8 hours ASA classification: IV Emergent
[2023-04-24] MEDS: LACTATED RINGERS 1,000 ML 30 ML IV CONT ×2 (09:00→11:50)
--- NOTE | 2023-04-24 10:22 | WPDHPUPDATE1 ---
History and Physical Update Update Date/Time: 04/24/23 10:22 History and Physical has been reviewed, including an updated exam of the patient. There are NO changes in the patient's condition. Risks, benefits, and alternatives have been discussed and questions answered. Patient agrees to proceed with procedure.
--- NOTE | 2023-04-24 10:23 | WPDHPUPDATE1 ---
History and Physical Update Update Date/Time: 04/24/23 10:23 History and Physical has been reviewed, including an updated exam of the patient. There are NO changes in the patient's condition. Risks, benefits, and alternatives have been discussed and questions answered. Patient agrees to proceed with procedure.
[2023-04-24] MEDS: LIDO 1%/EPINEPHRINE 1:100,000 50 ML VIAL 10 ML INFILTRATE (11:19)
[2023-04-24] MEDS: BACITRACIN OINTMENT 15 GM TUBE 1 APPLIC TOPICAL (11:23)
[2023-04-24 11:50] VITALS: BP 144/61; PULSE 51; RESP 14; O2SAT 98
[2023-04-24 12:20] VITALS: BP 136/59; PULSE 58; RESP 16
--- NOTE | 2023-04-24 12:22 | P.OP_ITS ---
Procedure Note - Detailed Date of Procedure 04/24/23 Pre-op Diagnosis Rt Carpal Tunnel / Rt Ulnar Post-op Diagnosis Same Procedure Performed Right open carpal tunnel release and right ulnar neuroplasty at the elbow with subcutaneous anterior transposition. Surgeon Walt Morris MD Anesthesia MAC Description of Procedure The carpal tunnel and cubital tunnel sites on the right upper extremity were marked with patient's consent in the holding area. Was taken to the operating room where he was placed supine on the operating table. He was given IV sedation. The extremity was prepped and draped in usual fashion. The sites for incision were marked in each locally infiltrated with 1% lidocaine with epine phrine. The extremity was exsanguinated with a tourniquet and tourniquet inflated to 250 mmHg. The incision was made 1st in the palm blunt dissection revealed the palmar aponeurosis. The 15 blade used to incise that and into the canal through the flexor retinaculum. Under 3 point retraction the ligament was divided distally and proximally to completely release it. There was no unusual anatomy noted. The skin was closed with a running 4-0 nylon suture. Attention was turned to the elbow which was flexed and supported on folded towels. The incision was made as marked. Blunt dissection revealed the ulnar nerve riding high on the medial epicondyle. A small muscle posteriorly was in 2nd position. The nerve was easily dissected in all directions the was constricted area seemed to be under do the subluxed position of the nerve we elected to transpose it anteriorly. The skin flap was further elevated and a fascial flap designed just beneath that the nerve was dissected free for couple of inches. It easily transposed and the flap was closed over it using 3-0 Monocryl interrupted sutures care not to impinge on the nerve. The wound was then closed with intradermal 3-0 Monocryl suture was a cross hatching jackson and the running intradermal 3-0 Monocryl to close the skin. Our usual bandages were applied the tourniquet was released at 38 minutes. The patient is discharged home with instructions and care and follow-up and a prescription for hydrocodone 5/325 6. Estimated Blood Loss 2 Tourniquet Time 38 Drains No Packing No Pathology None sent Complications No immediate complications Condition Stable Disposition PACU
[2023-04-24] MEDS: ONDANSETRON INJ 4 MG/2 ML VIAL IV PUSH (12:40)
[2023-04-24 12:50] VITALS: BP 138/54; PULSE 60; RESP 18
== END 2023-04-24 13:07 | disposition home or self-care (01) ==
PROVIDERS: PCP Family Medicine; Visit Provider Plastic Surgery
PROC: (CPT 64721; principal; 2023-04-24 09:00)
DX: G56.01 Carpal tunnel syndrome, right upper limb (principal); G56.21 Lesion of ulnar nerve, right upper limb; Z79.82 Long term (current) use of aspirin; Z79.51 Long term (current) use of inhaled steroids; E78.5 Hyperlipidemia, unspecified; E03.9 Hypothyroidism, unspecified; Z87.891 Personal history of nicotine dependence
CPT/HCPCS: 64721; 64718; A9270; J1100; J2405; J2704; J3010; J7120

== ENCOUNTER → 2023-06-28 10:54 | Outpatient (CLI) | payer MEDICARE, OTHER, SELFPAY ==
--- NOTE | ~2023-06-28 | DEXA_ITS ---
Bone Density Report Name: LARRY KRISHNAN Age: 83 Sex: Male Ethnicity: White Date of : 1940 Indication: screening for osteoporosis; height loss; cancer; asthma or emphysema; Referring Provider: CORRIE CABELLO Study: Bone densitometry was performed. Exam Date: June 28, 2023 Accession number: [id number] Bone Density: Region BMD T-score Z-score Classification AP Spine (L1-L4) 1.297 1.9 3.2 Normal Femoral Neck (Left) 0.811 -0.9 0.8 Normal Total Hip (Left) 0.971 -0.4 0.9 Normal Femoral Neck (Right) 0.837 -0.7 1.0 Normal Total Hip (Right) 1.068 0.2 1.5 Normal Total Hip Mean 1.020 -0.1 1.2 Normal World Health Organization criteria for BMD impression classify patients as: Normal (T-score at or above -1.0), Osteopenia (T-score between -1.0 and -2.5), or Osteoporosis (T-score at or below -2.5). 10-year Fracture Risk: FRAX not reported because: All T-scores for Spine Total, Hip Total, Femoral Neck at or above -1.0 Clinical Information Provided by Patient: Has used the following medications: Vitamin D Has the following medical conditions: Asthma or Emphysema, Cancer, PROSTATE CA X 3-4 MONTHS AGO WITH 8 RADIATION TREATMENTS Patient maximum height was 70.5 No regular weight bearing exercise Drinks caffeinated beverages Impression: The patient has normal bone mass. Discussion: BONE DENSITY IS ABOVE THE MINIMUM DESIRABLE LEVEL AT ALL SKELETAL SITES TESTED. This patient?s bone mineral density is above the minimum desirable level (T-score -1.0 or better) at all sites measured. The patient should follow a healthful lifestyle (good nutrition with adequate calcium and vitamin D, and appropriate weight-bearing exercise). Follow-Up: Consider repeating this study in 5 years or sooner if there is some new clinical indication. Reported by: ELIO on 06/28/2023 11:37:00 AM. Reviewed, dictated and finalized at location AOmero TRAN
== END ==
PROVIDERS: PCP Family Medicine; Visit Provider Nurse Practitioner Adult Health
DX: M85.88 Other specified disorders of bone density and structure, other site (principal)
CPT/HCPCS: 77080

== ENCOUNTER 2023-10-10 09:07 | Emergency (ER) | payer MEDICARE, OTHER, SELFPAY ==
[2023-10-10] VITALS (7 sets, daily range): BP systolic 115–141; BP diastolic 61–76; PULSE 65–96; RESP 14–18; TEMP 36.9; O2SAT 97–100
--- NOTE | 2023-10-10 09:12 | ECG_ITS ---
Measurements Intervals [place] Rate: 64 P: 67 WV: 185 QRS: -15 QRSD: 100 T: 42 QT: 399 QTc: 414 Interpretive Statements SINUS RHYTHM NO PREVIOUS ECG AVAILABLE FOR COMPARISON Electronically Signed On 10-10-2023 13:59:01 BATCH MAKER by Guillaume Hays M.D.
[2023-10-10] MEDS: ONDANSETRON INJ 4 MG/2 ML VIAL IV PUSH (09:22)
[2023-10-10 09:26] LABS: Basophils Percent Auto 0.3 % (0.2-1.2); Eosinophils Percent Auto 0.5 % (0-4.4); Hematocrit 41.2 % (42.0-52.0); Hemoglobin 13.9 g/dL (14.0-18.0); Immature Granulocyte Absolute 0.02 K/mm3 (0.00-0.031); Immature Granulocyte Percent A 0.3 % (0-0.5); Lymphocytes Absolute Auto 0.35 K/mm3 (0.9-3.2); Lymphocytes Percent Auto 4.7 % (18.3-44.2); Mean Corpuscular HGB Conc 33.7 g/dl (32-36); Mean Corpuscular Hemoglobin 31.4 pg (26-34); Mean Corpuscular Volume 93.2 fl (80-100); Mean Platelet Volume 9.3 fl (7.4-10.4); Monocytes Absolute Auto 0.6 K/mm3 (0.1-0.6); Monocytes Percent Auto 7.8 % (2.6-8.5); Neutrophils Absolute Auto 6.4 K/mm3 (1.3-6.7); Neutrophils Percent Auto 86.4 % (45.5-73.1); Platelet Count Result 175 k/mm3 (150-375); Red Blood Count 4.42 M/mm3 (4.6-6.20); Red Cell Distribution Width 12.5 % (11.5-14.5); White Blood Count 7.4 K/mm3 (4.5-10.0)
--- NOTE | 2023-10-10 09:39 | ED.GENADULT ---
HPI - General Adult General Chief complaint: Nausea/Vomiting/Diarrhea Stated complaint: N/V/D History of Present Illness HPI narrative: patient states that starting last night, he has been having lot of diarrhea, he has gone almost every 2 hours, with nausea and vomiting also. He continued to have more this morning so he came to the hospital. No fevers or chills, no dysuria, no abdominal pain, no chest pain. Related Data Home Medications Medication Instructions Recorded Confirmed aspirin 81 mg tablet,delayed 81 mg PO DAILY 11/13/19 10/09/23 release (Adult Low Dose Aspirin) omega-3 fatty acids 1,000 mg 1,000 mg PO DAILY 03/17/21 10/09/23 capsule (Fish Oil Concentrate) cholecalciferol (vitamin D3) 125 1,000 unit PO DAILY 09/14/21 10/09/23 mcg (5,000 unit) capsule acetaminophen 325 mg capsule 650 mg PO BID 04/17/23 10/09/23 (Tylenol) Allergies Allergy/AdvReac Type Severity Reaction Status Date / Time No Known Allergies Allergy Verified 10/10/23 09:12 Review of Systems Review of Systems: All systems reviewed & are unremarkable except as noted in HPI and below PMFSH Past Medical History Medical History Abnormal TSH Arthritis Body mass index [BMI] 24.0-24.9, adult (05/20/19) Borborygmi Cellulitis and abscess of other specified site Change in bowel habits Chronic bilateral low back pain without sciatica Chronic diarrhea Chronic pancreatitis Dysphagia, unspecified Fecal urgency H/O: HTN (hypertension) Hyperlipidemia, unspecified Hypothyroidism (acquired) Nausea Nonrheumatic aortic valve stenosis 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 Other chronic pain Primary osteoarthritis involving multiple joints Rash Skin lesion Family History Family History Father Cerebrovascular accident Alcoholism Mother Diabetes mellitus Sibling Cancer Hypertension Heart disease Other Cancer Other Family history of alcoholism Family history of arthritis Social History Social History Smoking packs per day: 3 Smoking cigarettes per day: 60.0 Years smoked: 16 Smoking pack-years: 48.00 Smoking status: Former smoker Tobacco type: cigarettes Smoking end date: 09/09/73 Alcohol intake: never Substance use: never Substance use type: does not use Lack of Transportation: No Lack of Food: Never True Current Housing: I Have Housing Concerned About Future Housing: No Difficulty Paying Gas/Electric Bills: No Difficulty Paying for Meds: No Currently Unemployed: No Education: Bachelor's Degree Difficulty w/ Childcare or Family Care: No Living arrangements: with family Spiritual care concerns: No Exam Narrative: EXAMINATION OF ORGAN SYSTEMS/BODY AREAS: Constitutional: Vital signs per nursing GENERAL:[No acute distress, non-toxic appearing.] HEAD: Normal with no signs of head trauma. EYES: EOMI, conjunctiva normal ENT: Hearing grossly intact LUNGS: Nonlabored breathing. HEART: [Regular rate and rhythm] ABD: [Soft], [nontender to palpation] EXT: Normal range of motion SKIN: [No rashes or lesions.] NEURO: [Alert and oriented x 3. No gross focal sensory or strength deficits.] PSYCH: Normal affect Course Vital Signs Vital signs: Vital Signs Temperature 98.5 F 10/10/23 09:08 Pulse Rate 65 10/10/23 09:08 Respiratory Rate 18 10/10/23 09:08 Blood Pressure 141/73 H 10/10/23 09:08 Pulse Oximetry 100 10/10/23 09:08 Oxygen Delivery Room Air 10/10/23 09:08 Temperature 98.5 F 10/10/23 09:08 Pulse Rate 74 10/10/23 13:19 Respiratory Rate 16 10/10/23 13:19 Blood Pressure 115/68 10/10/23 13:19 Pulse Oximetry 100 10/10/23 13:19 Oxygen Delivery Room Air 10/10/23 09:08 Medical Decision Making [facility] Narrative Medical decision making narrative: patient presenting with valeria
[2023-10-10] MEDS: LOPERAMIDE HCL 2 MG CAPSULE 4 MG PO (09:46)
[2023-10-10 10:14] LABS: Alanine Aminotransferase 43 U/L (6-50); Albumin Level 4.6 g/dL (3.5-5.1); Alkaline Phosphatase 55 U/L (38-126); Anion Gap 10 mmol/L (8-16); Aspartate Amino Transferase 52 U/L (17-59); Blood Urea Nitrogen 22 mg/dL (9-20); Calcium 10.3 mg/dL (8.4-10.2); Carbon Dioxide 25 mmol/L (22-30); Chloride 101 mmol/L (98-107); Estimated CRCL calculation 66 ml/min; Estimated Glomerular Filt Rate > 60; Glucose 169 mg/dL (65-110); Lipase 66 U/L (23-300); Potassium 4.6 mmol/L (3.4-5.0); Sodium 136 mmol/L (137-145)
[2023-10-10 10:23] LABS: Appearance Urine Slightly Cloudy (Clear); Glucose Urine UA Negative (Negative); Ketones Urine Negative (Negative); Protein Urine Negative (Negative); pH Urine 7.5 (5.0-9.0)
[2023-10-10 10:24] LABS: Bilirubin Urine Negative (Negative); Blood Urine Negative (Negative); Color Urine Yellow (Yellow); Leukocyte Esterase Ur Negative LEU/UL (Negative); Nitrate Urine Negative (Negative); Urobilinogen Urine 0.2 mg/dL (<2.0)
[2023-10-10 10:28] LABS: Influenza A QL RT-PCR Negative (Negative); Influenza B QL RT-PCR Negative (Negative); RSV RNA, RT-PCR Negative (Negative); SARS-CoV-2 RNA PCR Negative (Negative)
[2023-10-10] MEDS: METOCLOPRAMIDE HCL INJ 10 MG/2 ML VIAL IV PUSH (11:13)
[2023-10-10 11:51] LABS: Add Urine Microscopic? YES; RBC Urine 0-2 /hpf (0-2); WBC Urine 0-5 /hpf
[2023-10-10 11:52] LABS: Amorphous Sediment Urine Moderate; Squamous Epithelial Cell Urine Rare /hpf (Few)
== END 2023-10-10 13:20 ==
PROVIDERS: Emergency Provider Emergency Medicine; PCP Family Medicine
DX: R19.7 Diarrhea, unspecified (principal); R11.2 Nausea with vomiting, unspecified; Z20.822 Contact with and (suspected) exposure to COVID-19; I10 Essential (primary) hypertension; I35.0 Nonrheumatic aortic (valve) stenosis; E78.5 Hyperlipidemia, unspecified; E03.9 Hypothyroidism, unspecified; M19.90 Unspecified osteoarthritis, unspecified site; Z87.891 Personal history of nicotine dependence; Z79.82 Long term (current) use of aspirin
CPT/HCPCS: 36415; 80053; 81001; 81003; 83690; 85025; 87637; 93005; 96374; 96375; 99284; A9270; J2405; J2765

== ENCOUNTER → 2023-11-07 11:23 | Outpatient (CLI) | payer MEDICARE, OTHER, SELFPAY ==
--- NOTE | ~2023-11-07 | XR_ITS ---
EXAMINATION: XR pelvis 1-2V DATE: 11/07/2023 11:58 INDICATION: Low back pain TECHNIQUE: An anteroposterior view of the pelvis was obtained. COMPARISON: CT dated 10/28/2020 and pelvis radiograph dated 02/26/2019 FINDINGS: Diffuse osteopenia. Minimal lumbar levocurvature with moderate to severe spondylosis. No fracture. Mi ld bilateral hip osteoarthritis. Surgical clips project over the left pubic body likely related to pr ior inguinal hernia repair. IMPRESSION: 1. Moderate to severe lumbar spondylosis and mild bilateral hip osteoarthritis. No acute osseous abno rmality. Reviewed, dictated and finalized at location L. IFOCAL LENS ASSEMBLER IMPRESSION: 1. Moderate to severe lumbar spondylosis and mild bilateral hip osteoarthritis. No acute osseous abnormality.
--- NOTE | ~2023-11-07 | XR_ITS ---
Lumbosacral Spine: AP and lateral views Clinical History: Pain Findings: No fracture seen. There is 3 mm retrolisthesis of L2 over L3, and of L3 over L4. There is g rade 1 anterolisthesis of L4 over L5 measuring 6 mm. There is advanced degenerative disc narrowing th roughout the lumbar spine. There is severe facet arthropathy throughout lumbar spine. The sacroiliac joints are normally outlined. Impression: Severe degenerative spondylosis with multiple grade 1 listheses, as detailed above. Reviewed, dictated and finalized at location M. HOBBER OPERATOR Impression: Severe degenerative spondylosis with multiple grade 1 listheses, as detailed ab ove.
== END ==
PROVIDERS: PCP Family Medicine; Visit Provider Family Medicine
DX: M47.896 Other spondylosis, lumbar region (principal); M16.0 Bilateral primary osteoarthritis of hip
CPT/HCPCS: 72100; 72170

== ENCOUNTER 2024-01-09 09:41 | Outpatient (CLI) | payer MEDICARE, OTHER, SELFPAY ==
--- NOTE | 2024-01-09 09:57 | ECHO_ITS ---
Patient Info Name: Jean Carlos Trinh Age: 83 years : 1940 Gender: Male Ht: 69 in Wt: 169 lbs BSA: 1.94 m2 HR: 83 bpm BP: 143 / 84 mmHg Technical Quality: Fair Exam Date: 01/09/2024 10:04 AM Exam Location: Echo Lab Patient Status: Outpatient Admit Date: 01/09/2024 Staff Ordering Physician: Quang Bahena DO Tools Developer: Elicia Alaniz RDCS Attending Provider: Quang Bahena DO Referring Physician: Josef JORGENSEN; Exam Type: CA echo doppler color flow Study Info Indications I35.0 - Nonrheumatic aortic (valve) stenosis Complete two-dimensional, color flow and Doppler transthoracic echocardiogram is performed. Summary 1. Complete two-dimensional, color flow and Doppler transthoracic echocardiogram is performed. 2. Left ventricular chamber dimension is normal. 3. Left ventricular systolic function is normal, estimated at 65-70%. 4. There is mild concentric increased left ventricular wall thickness. 5. The left ventricular diastolic function is grade I diastolic dysfunction. 6. E/e' 15 is elevated. 7. Left atrial chamber dimension is mildly enlarged. 8. There is severe aortic valve sclerosis. 9. There is moderate aortic valve stenosis with a peak velocity of 275 cm/s, mean gradient of 16 mmHg, and aortic valve area of 1.1 cm2. 10. There is mild aortic valve regurgitation. 11. The mitral valve has mildly calcified leaflets and mildly calcified annulus. 12. There is trace mitral valve regurgitation. 13. There is mild tricuspid valve regurgitation. 14. No pulmonary hypertension, estimated pulmonary arterial systolic pressure is 34 mmHg. Left Ventricle E/e' 15 is elevated. Left ventricular chamber dimension is normal. Left ventricular systolic function is normal, estimated at 65-70%. There is mild concentric increased left ventricular wall thickness. The left ventricular diastolic function is grade I diastolic dysfunction. Right Ventricle Right ventricular systolic function is normal and with normal TAPSE 2.3 cm. Right ventricular chamber dimension is normal. Left Atria Left atrial chamber dimension is mildly enlarged. Right Atria Right atrial chamber dimension is normal. Aortic Valve The aortic valve is trileaflet. There is severe aortic valve sclerosis. There is moderate aortic valve stenosis with a peak velocity of 275 cm/s, mean gradient of 16 mmHg, and aortic valve area of 1.1 cm2. There is mild aortic valve regurgitation. Pulmonic Valve There is no pulmonic regurgitation. Mitral Valve The mitral valve has mildly calcified leaflets and mildly calcified annulus. There is no mitral valve stenosis. There is trace mitral valve regurgitation. Tricuspid Valve There is mild tricuspid valve regurgitation. No pulmonary hypertension, estimated pulmonary arterial systolic pressure is 34 mmHg. Pericardium/Pleural There is no pericardial effusion. Inferior Vena Cava Normal inferior vena cava with >50% collapse upon inspiration consistent with normal right atrial pressure, 5 mmHg. Aorta The aortic root size at the sinus of Valsalva is normal. Left Ventricular Outflow Tract Name Value Normal LVOT 2D LVOT Diameter 2.1 cm LVOT Doppler LVOT Peak Gradient 3 mmHg LVOT Mean
== END 2024-01-09 09:42 | disposition home or self-care (01) ==
PROVIDERS: PCP Family Medicine; Visit Provider Internal Medicine Cardiovascular Disease
DX: I35.0 Nonrheumatic aortic (valve) stenosis (principal); I36.1 Nonrheumatic tricuspid (valve) insufficiency; I34.0 Nonrheumatic mitral (valve) insufficiency; I35.1 Nonrheumatic aortic (valve) insufficiency
CPT/HCPCS: 93306

== ENCOUNTER 2024-05-13 13:31 | Outpatient (CLI) | payer MEDICARE, OTHER, SELFPAY ==
--- NOTE | ~2024-05-13 | XR_ITS ---
Clinical Indication: Anemia PA and lateral views of the chest: Comparison: 12/05/2022 Findings: The lungs are clear, without evidence of focal consolidation or pleural effusion. Cardiome diastinal silhouette is within normal limits. Bones and soft tissues are unremarkable. Impression: Normal chest. Reviewed, dictated and finalized at location . Impression: Normal chest.
== END 2024-05-13 13:32 | disposition home or self-care (01) ==
LOC: MICIMG 13:32
PROVIDERS: PCP Family Medicine; Visit Provider Family Medicine
DX: D64.9 Anemia, unspecified (principal); I35.9 Nonrheumatic aortic valve disorder, unspecified; K86.1 Other chronic pancreatitis; R63.4 Abnormal weight loss
CPT/HCPCS: 71046

== ENCOUNTER 2025-02-11 09:01 | Outpatient (CLI) | payer MEDICARE, OTHER, SELFPAY ==
--- NOTE | 2025-02-11 09:12 | ECHO_ITS ---
Patient Info Name: Jean Carlos Trinh Age: 84 years : 1940 Gender: Male Ht: 68 in Wt: 159 lbs BSA: 1.87 m2 HR: 75 bpm BP: 141 / 73 mmHg Technical Quality: Good, Fair Exam Date: 02/11/2025 9:21 AM Patient Status: O Admit Date: 02/11/2025 Exam Type: CA echo doppler color flow Complete two-dimensional, color flow and Doppler transthoracic echocardiogram is performed. Geriatric Nursing Assistant: Buffy Garcia Attending Provider: Quang Bahena DO Summary 1. Complete two-dimensional, color flow and Doppler transthoracic echocardiogram is performed. 2. Left ventricular chamber dimension is normal. 3. Left ventricular systolic function is normal, estimated at 55-60. 4. There is mild concentric increased left ventricular wall thickness. 5. The left ventricular diastolic function is grade I diastolic dysfunction. 6. E/e' 10 is mildly elevated. 7. Left atrial chamber dimension is mildly enlarged. 8. There is severe aortic valve sclerosis. 9. There is moderate aortic valve stenosis with a peak velocity of 286 cm/s, mean gradient of 21 mmHg, and aortic valve area of 1.0 cm2. 10. There is mild aortic valve regurgitation. 11. The mitral valve has mildly calcified leaflets and a mildly calcified annulus. 12. There is mild tricuspid valve regurgitation. 13. No pulmonary hypertension, estimated pulmonary arterial systolic pressure is 35 mmHg. Left Ventricle E/e' 10 is mildly elevated. Left ventricular chamber dimension is normal. Left ventricular systolic function is normal, estimated at 55-60. There is mild concentric increased left ventricular wall thickness. The left ventricular diastolic function is grade I diastolic dysfunction. Right Ventricle Right ventricular chamber dimension is normal. Right ventricular systolic function is normal and with normal TAPSE 2.4 cm. Left Atria Left atrial chamber dimension is mildly enlarged. Right Atria Right atrial chamber dimension is normal. Aortic Valve The aortic valve is trileaflet. There is severe aortic valve sclerosis. There is moderate aortic valve stenosis with a peak velocity of 286 cm/s, mean gradient of 21 mmHg, and aortic valve area of 1.0 cm2. There is mild aortic valve regurgitation. Pulmonic Valve There is no pulmonic regurgitation. Mitral Valve The mitral valve has mildly calcified leaflets and a mildly calcified annulus. There is no mitral valve stenosis. There is no mitral valve regurgitation. Tricuspid Valve There is mild tricuspid valve regurgitation. No pulmonary hypertension, estimated pulmonary arterial systolic pressure is 35 mmHg. Pericardium/Pleural There is no pericardial effusion. Inferior Vena Cava Normal inferior vena cava with >50% collapse upon inspiration consistent with normal right atrial pressure, 5 mmHg. Aorta The aortic root size at the sinus of Valsalva is normal. Left Ventricular Outflow Tract Name Value Normal LVOT 2D LVOT Diameter 2.1 cm LVOT Doppler LVOT Peak Velocity 79 cm/s LVOT Peak Gradient 3 mmHg LVOT Mean Gradient 2 mmHg LVOT VTI 24 cm LVOT VTI/AV VTI Ratio 0.3 LVOT Stroke Volume 82 ml LVOT CO 12.7 l/min LVOT CI 6.8 l/min/m2 Pulmonic Valve Name Value Normal PV Doppler PV Peak Velocity 85 cm/s PV Peak Gradient 3 mmHg Mitral Valve Name Value Normal MV Diastolic Function MV E Peak Velocity 63 cm/s MV A Peak Velocity 98 cm/s MV E/A 0.6 MV Decel Time (PW) 271 ms MV Annular TDI MV E/e' (Septal) 13.0 MV E/e' (Lateral) 8.6 MV E/e' (Average) 10.8 Tricuspid Valve Name Value Normal TV Regurgitation Doppler TR Peak Velocity 272 cm/s TR Peak Gradient 28 mmHg Estimated PAP/RSVP RA Pressure 5 mmHg <=5 PA Systolic Pressure 35 mmHg <36 RV Systolic Pressure 35 mmHg <36 TV Annular TDI TV Lateral Consuelo s' Velocity 14.9 cm/s >=9.5 Aorta Name Value Normal Ascending Aorta Ao Root Diameter (MM) 3.3 cm Ao Root Diam Index (MM) 1.8 cm/m2 Aortic Valve Name Value Normal AV Doppler AV Peak Velocity 286 cm/s AV Peak Gradient 33 mmHg AV Mean Gradient 21 mmHg AV VTI 78 cm AV Area (Cont Eq VTI) 1.0 cm2 >=3.0 AV Area (Cont Eq Domenico) 0.9 cm2 AV DI (Domenico) 0.28 AV Regurgitation 2D LVOT Area 3.4 cm2 Ventricles Name Value Normal LV Dimensions 2D/MM IVS Diastolic Thickness (2D) 1.3 cm 0.6-1.0 LVID Diastole (2D) 3.8 cm 4.2-5.8 LVIW Diastolic Thickness (2D) 1.0 cm 0.6-1.0 LVID Systole (2D) 2.3 cm 2.5-4.0 LVOT Diameter 2.1 cm LV Mass (2D Cubed) 138.61 g 88.00-224.00 LV Mass Index (2D Cubed) 74 g/m2 49-115 Relative Wall Thickness (2D) 0.53 <=0.42 LV Fractional Shortening/Ejection Fraction 2D/MM LV Fractional Shortening (2D) 38 % 25-43 LV EF (2D Teichholz) 69 % LV Diastolic Volume (4C MOD) 123 ml LV EF (4C MOD) 55 % LV Diastolic Volume (2C MOD) 101 ml LV EF (2C MOD) 57 % LV Diastolic Volume (BP MOD) 112 ml 62-150 LV Diastolic Volume Index (BP MOD) 60 ml/m2 34-74 LV Systolic Volume (BP MOD) 49 ml 21-61 LV Systolic Volume Index (BP MOD) 26 ml/m2 11-31 LV EF (BP MOD) 56 % 52-72 LV Diastolic Length (4C) 8.3 cm LV Systolic Length (4C) 7.5 cm LV Stroke Volume (4C MOD) 68 ml RV Dimensions 2D/MM RVID Diastole (2D) 4.3 cm 2.1-3.5 Atria Name Value Normal LA Dimensions LA Volume (4C A-L) 49 ml LA Volume (BP A-L) 58 ml RA Dimensions RA Systolic Major Eagle Length (4C) 4.6 cm 2.1-2.7 RA Area (4C) 15.7 cm2 <=18.0 Report Signatures
--- OUTSIDE RECORDS SUMMARY | 2025-02-11 09:34 | XMS_ITS | Clinical Summary ---
Author Organization [facility] Address [address] [place] [address] Care Team Providers Care Carbon Dioxide Operator Name Role Phone Dave Rain MD Primary Care Provider [phone] Casey Contreras MD Unavailable [phone] Source Comments [facility],non-owned Affiliates and Associated Physician Practices is amultiple site organization consisting of ambulatory clinics and hospital sitesin [place], [place], [place] and [place]. This disclosure is being madepursuant to the Care Everywhere program and may not contain all information available regarding this patient. Last updated 18.[facility] [employer] Allergies No known active allergies Medications * Be aware that medications may not be up to date on this document. Alwaysverify current medications with the patient. hydroCHLOROthia zide (HYDRODIURIL) 12.5 MG Take 12.5 mg by mouth once daily 1 Active losartan (COZAAR) 25 MG tablet losartan 25 mg tablet 0 Active rosuvastatin (CRESTOR) 5 MG tablet Take 5 mg by mouth once daily 1 Active albuterol (PROVENTIL;VENT NHI) (2.5 MG/3ML) 0.083% nebulizer solution USE 1 VIAL IN NEBULIZER 4 TIMES DAILY 1 Active aspirin (ASPIRIN) 81 MG chew tablet Take 81 mg by mouth once daily Active aspirin EC (ECOTRIN) 81 MG tablet Take 81 mg by mouth once daily Active albuterol-iprat ropium (DUO-NEB) 0.5-2.5 (3) MG/3ML nebulizer solution 1 Active mirtazapine (REMERON) 15 MG tablet 1 Active Social History Tobacco Use Types Packs/Day Years Used Date Smoking Tobacco: Former Smokeless Tobacco: Never Alcohol Use Standard Drinks/Week Comments Never 0 (1 standard drink = 0.6 oz pur e alcohol) Sex and Gender Information Value Date Recorded Sex Assigned at Not on file Legal Sex Male 10:44 AM CDT Gender Identity Not on file Sexual Orientation Not on file Last Filed Vital Signs Vital Sign Reading Time Taken Comments Blood Pressure 153/80 05/01/2021 3:36 PM CDT Pulse 60 05/01/2021 3:36 PM CDT Temperature - - Respiratory Rate 16 05/01/2021 3:36 PM CDT Oxygen Saturation 97% 05/01/2021 3:36 PM CDT Inhaled Oxygen Concentration - - Weight 76.2 kg (168 lb) 10/31/2021 10:06 AM AUDIT OFFICER Height 175.3 cm (5' 9) 10/31/2021 10:06 AM AUDIT OFFICER Body Mass Index 24.81 10/31/2021 10:06 AM AUDIT OFFICER Plan of Treatment Health Maintenance Due Date Last Done Comments DTAP/TDAP/TD VACCINES (1 - Tdap) 1957 PNEUMOCOCCAL VACCINE 50+ (1 of 1 - PCV) 1988 ZOSTER VACCINE (1 of 2) 1988 Respiratory Syncytial Virus (RSV) Vaccine Pt: or over 60 yrs (1 - 1-dose 75+ series) 2013 COVID-19 VACCINE ( - 2023-2 5 season) 2024 DEPRESSION SCREENING 09/09/2024 INFLUENZA VACCINE (Season Ended) 2025 HEPATITIS B VACCINE Aged Out No longe r eligible based on patient's age to complete this topic HIB VACCINE Aged Out No longer eligi ble based on patient's age to complete this topic HPV VACCINE Aged Out No longer eligi ble based on patient's age to complete this topic MENINGOCOCCAL (Group B) VACC INE SHARED DECISION-MAKING Aged Out No longer eligibl e based on patient's age to complete this topic MENINGOCOCCAL GROUPS A/C/Y/W VACCINE Aged Out No longer eligible b ased on patient's age to complete this topic Insurance MEDICARE [facility] [place] [address] Care Teams Carbon Dioxide Operator Relationship Specialty Start Date End Date Dave Rain MD [address] [place] [id number] PCP - General Internal Medicine 05/01/21 [place] [address] [place] [address] Physical Medicine and Rehabilitation 05/01/21
== END 2025-02-11 09:02 | disposition home or self-care (01) ==
PROVIDERS: PCP Family Medicine; Visit Provider Internal Medicine Cardiovascular Disease
DX: R93.1 Abnormal findings on diagnostic imaging of heart and coronary circulation (principal); I35.0 Nonrheumatic aortic (valve) stenosis
CPT/HCPCS: 93306

== ENCOUNTER 2025-05-22 13:53 | Emergency (ER) | payer MEDICARE, OTHER, SELFPAY ==
--- NOTE | ~2025-05-22 | XR_ITS ---
EXAMINATION: XR foot LT min 3V, 05/22/2025 14:30 CDT HISTORY: pain and swelling, no known injury COMPARISON: No comparisons available. Findings: No acute fracture or malalignment. No significant degenerative changes. Soft tissues unremarkable. Impression: No acute fracture or malalignment. Reviewed, dictated and finalized at location A. Impression: No acute fracture or malalignment.
--- OUTSIDE RECORDS SUMMARY | 2025-05-22 13:55 | XMS_ITS | Clinical Summary ---
Author Organization [facility] Address [address] [place] [address] Care Team Providers Care Satellite Television Installer Name Role Phone Dave Rain MD Primary Care Provider [phone] Casey Contreras MD Unavailable [phone] Source Comments [facility],non-owned Affiliates and Associated Physician Practices is amultiple site organization consisting of ambulatory clinics and hospital sitesin [place], [place], [place] and [place]. This disclosure is being madepursuant to the Care Everywhere program and may not contain all information available regarding this patient. Last updated 18.[facility] [employer] Allergies No known active allergies Medications * [...] 76.2 kg (168 lb) 10/31/2021 10:06 AM PAINTER SKI EDGE Height 175.3 cm (5' 9) 10/31/2021 10:06 AM PAINTER SKI EDGE Body Mass Index 24.81 10/31/2021 10:06 AM PAINTER SKI EDGE Plan of Treatment Health Maintenance Due Date Last Done Comments DTAP/TDAP/TD VACCINES (1 - Tdap) 1957 PNEUMOCOCCAL VACCINE 50+ (1 of 1 - PCV) 1988 ZOSTER VACCINE (1 of 2) 1988 Respiratory Syncytial Virus (RSV) Vaccine Pt: or over 60 yrs (1 - 1-dose 75+ series) 2013 DEPRESSION SCREENING 09/09/2024 COVID-19 VACCINE (1 - 2023-2 5 season) 2025 INFLUENZA VACCINE (#1) 2025 HEPATITIS B VACCINE Aged Out No [...] age to complete this topic Insurance MEDICARE [place] [address] Care Teams Satellite Television Installer Relationship Specialty Start Date End Date Dave Rain MD [address] [place] [id number] PCP - General Internal Medicine 05/01/21 [place] [address] [place] [address] Physical Medicine and Rehabilitation 05/01/21
[2025-05-22 14:12] VITALS: BP 109/62; PULSE 77; RESP 16; TEMP 37; O2SAT 95
--- NOTE | 2025-05-22 14:39 | ED.EXTPRO ---
HPI - Extremity Problem General Chief complaint: Extremity Problem,Nontraumatic Stated complaint: left foot pain Time Seen by Provider: 05/22/25 14:40 Source: patient Mode of arrival: ambulatory Limitations: no limitations History of Present Illness HPI Narrative: 84 years old white male with vacuuming yesterday after finishing started having severe pain at the low of foot dorsally. Denies any specific injury. Worse bearing weight on it and walking. He denies any fever, chills, nausea, vomiting. Related Data Home Medications ?Medication ?Instructions ?Recorded ?Confirmed ?Last Taken ?Type aspirin 81 mg tablet,delayed 81 mg PO DAILY 11/13/19 02/12/25 Unknown History release (Adult Low Dose Aspirin) omega-3 fatty acids 1,000 mg 1,000 mg PO DAILY 03/17/21 02/12/25 Unknown History capsule (Fish Oil Concentrate) cholecalciferol (vitamin D3) 125 1,000 unit PO DAILY 09/14/21 02/12/25 Unknown History mcg (5,000 unit) capsule acetaminophen 325 mg capsule 650 mg PO BID 04/17/23 02/12/25 Unknown History (Tylenol) simethicone 250 mg capsule (Gas-X) 250 mg PO BID PRN 02/10/25 02/12/25 Unknown History Allergies Allergy/AdvReac Type Severity Reaction Status Date / Time No Known Allergies Allergy Verified 05/22/25 14:18 Review of Systems Review of Systems: All systems reviewed & are unremarkable except as noted in HPI and below PMFSH Past Medical History Medical History Nausea Chronic pancreatitis Change in bowel habits Borborygmi Fecal urgency Chronic diarrhea H/O: HTN (hypertension) Abnormal TSH Arthritis Body mass index [BMI] 24.0-24.9, adult (05/20/19) Cellulitis and abscess of other specified site Chronic bilateral low back pain without sciatica Dysphagia, unspecified Hyperlipidemia, unspecified Hypothyroidism (acquired) Nonrheumatic aortic valve stenosis 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 Other chronic pain Primary osteoarthritis involving multiple joints Rash Skin lesion Family History Family History Father Cerebrovascular accident Alcoholism Mother Diabetes mellitus Sibling Cancer Hypertension Heart disease Other Cancer Other Family history of alcoholism Family history of arthritis Social History Social History Smoking packs per day: 3 Smoking cigarettes per day: 60.0 Years smoked: 16 Smoking pack-years: 48.00 Smoking status: Former smoker Tobacco type: cigarettes Smoking end date: 09/09/73 Alcohol intake: never Substance use: never Substance use type: does not use Lack of Transportation: No Lack of Food: Never True Current Housing: I Have Housing Concerned About Future Housing: No Difficulty Paying Gas/Electric Bills: No Difficulty Paying for Meds: No Currently Unemployed: No Education: Bachelor's Degree Difficulty w/ Childcare or Family Care: No Living arrangements: with family Spiritual care concerns: No Exam Narrative: General appearance: Well-developed, well-nourished Skin: Normal color Head: Normocephalic, nontraumatic Eyes: Clear conjunctiva ENT: Oropharynx normal, ears normal, nose normal Neck: Supple, nontender Chest and respiratory: Airway patent, no respiratory distress, no accessory muscle use Heart: Regular rate/rhythm Abdomen: Soft, nontender, no organomegaly, quiet bowel sounds Vascular: Normal peripheral pulses, normal capillary refill. Musculoskeletal: Left foot exam showed slight tenderness dorsally and laterally otherwise no bruises, no deformity,. Palpable pedal pulse Neurologic: Alert and oriented ?3, VISITOR SERVICES ASSOCIATE is normal as tested, no gross motor deficit Course Vital Signs Vital signs: Vital Signs Temperature 37.0 C 05/22/25 14:12 Pulse Rate 77 05/22/25 14:12 Respiratory Rate 16 05/22/25 14:12 Blood Pressure 109/62 05/22/25 14:12 Pulse Oximetry 95 05/22/25 14:12 Oxygen Delivery Room Air 05/22/25 14:12 Temperature 37.0 C 05/22/25 14:12 Pulse Rate 77 05/22/25 14:12 Respiratory Rate 16 05/22/25 14:12 Blood Pressure 109/62 05/22/25 14:12 Pulse Oximetry 95 05/22/25 14:12 Oxygen Delivery Room Air 05/22/25 14:12 MDM - Extremity (Nontraumatic) Imaging Data Radiologist's impression: Impressions Foot X-Ray 05/22/25 14:42 Impression: No acute fracture or malalignment. Critical Care Time Critical Care Time Critical Care Time: No Discharge Plan Discharge Clinical Impression: Foot sprain Patient Disposition: Home Condition: Stable Instructions: Foot Sprain (ED) Additional Instructions: Return if symptoms are worsening , call your family physician for appointment, take Tylenol, ibuprofen as as needed for aches and pain, continue home medications. Keep foot elevated Crutches as needed Ezra wrap as needed Patient Language: Malagasy Prescriptions: No Action omega-3 fatty acids [Fish Oil Concentrate] 1,000 mg capsule 1,000 mg PO DAILY albuterol sulfate 90 mcg/actuation HFA aerosol inhaler 1 - 2 puff inhalation Q4-6H PRN (Reason: shortness of breath or wheezing) Qty: 8.5 2RF trazodone 50 mg tablet 50 mg PO QHS PRN (Reason: insomnia) Qty: 90 0RF aspirin [Adult Low Dose Aspirin] 81 mg tablet,delayed release (DR/EC) 81 mg PO DAILY cholecalciferol (vitamin D3) 125 mcg (5,000 unit) capsule 1,000 unit PO DAILY Gas-X 250 mg capsule 250 mg PO BID PRN polyethylene glycol 3350 [Miralax] 17 gram/dose powder 17 g PO DAILY Qty: 119 0RF docusate sodium 100 mg tablet 100 mg PO TID Qty: 90 0RF acetaminophen [Tylenol] 325 mg Capsule 650 mg PO BID albuterol sulfate 2.5 mg /3 mL (0.083 %) solution for nebulization See Rx Instructions .ROUTE .COMPLEX Qty: 360 3RF Dose Instruction: INHALE 1 VILE 4 TIMES DAILY NEEDED FOR SHORTNESS OF BREATH OR WHEEZING Rx Instructions: INHALE 1 VILE 4 TIMES DAILY NEEDED FOR SHORTNESS OF BREATH OR WHEEZING J44.9 COPD omeprazole 20 mg capsule,delayed release(DR/EC) 20 mg PO DAILY Qty: 90 0RF mirtazapine 15 mg tablet See Rx Instructions .ROUTE .COMPLEX Qty: 90 1RF Dose Instruction: Take 1 tablet by mouth once daily Rx Instructions: Take 1 tablet by mouth once daily losartan 50 mg tablet See Rx Instructions .ROUTE .COMPLEX Qty: 90 1RF Dose Instruction: Take 1 tablet by mouth once daily Rx Instructions: Take 1 tablet by mouth once daily tramadol 50 mg tablet 25 mg PO Q8H PRN (Reason: pain) Qty: 45 0RF hydrochlorothiazide 25 mg tablet 25 mg PO DAILY Qty: 90 1RF hydrocortisone-pramoxine 2.5-1 % lotion 1 applic topical BID PRN (Reason: hemorrhoids) Qty: 59 0RF Rx Instructions: allow at least 3 hours between applications rosuvastatin 5 mg tablet See Rx Instructions .ROUTE .COMPLEX Qty: 90 0RF Dose Instruction: Take 1 tablet by mouth once daily Rx Instructions: Take 1 tablet by mouth once daily Follow-up/Referrals: Migel Miramontes MD [Primary Care Provider, Family Practice]
== END 2025-05-22 15:30 | disposition home or self-care (01) ==
PROVIDERS: Emergency Provider Emergency Medicine; PCP Family Medicine
DX: S93.602A Unspecified sprain of left foot, initial encounter (principal); I10 Essential (primary) hypertension; E03.9 Hypothyroidism, unspecified; E78.5 Hyperlipidemia, unspecified; Z87.891 Personal history of nicotine dependence; X58.XXXA Exposure to other specified factors, initial encounter
CPT/HCPCS: 73630; 99283

== ENCOUNTER 2025-07-23 09:56 | Outpatient (CLI) | payer MEDICARE, OTHER, SELFPAY ==
--- NOTE | ~2025-07-23 | CT_ITS ---
EXAMINATION:CT diagnostic chest wo con DATE: 07/23/2025 10:15 INDICATION: COPD TECHNIQUE: Computed tomography (CT) of the chest was performed without intravenous contrast. The dose-length product (DLP) was 75.00 mGy-cm. COMPARISON: February 28, 2021 FINDINGS: Mild scattered fibrotic and centrilobular emphysematous changes in the lungs but no consolidation effusion or pneumothorax or suspicious lung nodules/masses. Heart and great vessels stable with ectatic appearance of the ascending thoracic aorta measuring 3.8 cm. Extensive coronary artery calcification and/or stenting. Trace pericardial effusion. No bulky lymphadenopathy or masses. Small to moderate-sized hiatal hernia is increased in size. Diffuse degenerative changes in the bones which otherwise appear intact. No acute process seen in the visualized portions of the upper abdomen or extrathoracic soft tissues. IMPRESSION: 1. Mild chronic appearing lung changes with no gross acute intrathoracic process. 2. No gross evidence of intrathoracic malignant disease. Reviewed, dictated and finalized at location A. ULTING APPLICATION ENGINEER IMPRESSION: 1. Mild chronic appearing lung changes with no gross acute intrathoracic proces s. 2. No gross evidence of intrathoracic malignant disease.
== END 2025-07-23 09:57 | disposition home or self-care (01) ==
PROVIDERS: PCP Family Medicine; Visit Provider Physician Assistant
DX: J44.9 Chronic obstructive pulmonary disease, unspecified (principal); G47.34 Idiopathic sleep related nonobstructive alveolar hypoventilation; R06.00 Dyspnea, unspecified
CPT/HCPCS: 71250

== ENCOUNTER 2025-09-03 13:48 | Emergency (ER) | payer MEDICARE, OTHER, SELFPAY ==
--- NOTE | ~2025-09-03 | CT_ITS ---
EXAMINATION: CT abdomen pelvis w con DATE: 09/03/2025 18:42 INDICATION: Right lower quadrant pain TECHNIQUE: Computed tomography (CT) of the abdomen and pelvis was performed with intravenous contrast. The dose-length product was 293.00 mGy-cm. Automated exposure control and iterative reconstruction technique were employed. COMPARISON: CT dated 10/28/2020 FINDINGS: Lung bases unremarkable. Moderate size hiatal hernia. The liver, spleen, adrenal glands and kidneys are unremarkable. There are pancreatic calcifications consistent with chronic pancreatitis. Gallbladder is present. There is atherosclerosis of the aorta. Bladder is decompressed limiting evalu ation for wall thickening. There are radiation therapy implant seeds in the prostate bed. Normal appendix. Nonobstructive bowel gas pattern. No significant vascular abnormality. No lymphadenopathy. There are changes of left inguinal hernia repair. Severe lumbar spondylosis with grade 1 spondylolisthesis at L4-5 secondary to facet hypertrophy. IMPRESSION: 1. No acute abdominal abnormality. 2: Moderate size hiatal hernia. 3: Chronic pancreatitis. Reviewed, dictated and finalized at location [facility]. [facility] [employer]
[2025-09-03 13:48] VITALS: BP 155/56; PULSE 84; RESP 20; TEMP 36.3; O2SAT 98
--- NOTE | 2025-09-03 17:49 | ED_ITS ---
HPI - Abdominal Pain General Chief Complaint: Abdominal Pain Stated Complaint: abd pain Time Seen by Provider: 09/03/25 17:30 Source: patient Mode of arrival: ambulatory Limitations: no limitations History of Present Illness HPI narrative: This is an 85-year-old male with history of GERD, aortic stenosis, hyperlipidemia, COPD who presents to the ED for right lower quadrant abdominal pain and right testicle pain. Patient states that for the past couple months, he has been having some mild right testicle pain. Over the last week, this has been more severe. It is intermittent and last for minutes at a time. He notes that he wears a jockstrap that seems to make it slightly better. Denies dysuria, hematuria. Also notes that he had onset of right lower quadrant abdominal pain 2 days ago. Denies nausea, vomiting, fevers. Related Data Home Medications ?Medication ?Instructions ?Recorded ?Confirmed ?Last Taken ?Type aspirin 81 mg tablet,delayed 81 mg PO DAILY 11/13/19 1 10/28/24 Unknown History release (Adult Low Dose Aspirin) omega-3 fatty acids 1,000 mg 1,000 mg PO DAILY 1 08/27/25 Unknown History capsule (Fish Oil Concentrate) cholecalciferol (vitamin D3) 125 1,000 unit PO DAILY 0 09/14/21 08/27/25 Unknown History mcg (5,000 unit) capsule acetaminophen 325 mg capsule 650 mg PO BID 04/17/23 Unknown History (Tylenol) Allergies Allergy/AdvReac Type Severity Reaction Status Date / Time No Known Allergies Allergy Verified 08/17/25 11:25 Review of Systems 2 Review of Systems: All systems reviewed & are unremarkable except as noted in HPI and below PMFSH Past Medical History Medical History Lesion of right ear Nausea Chronic pancreatitis Change in bowel habits Borborygmi Fecal urgency Chronic diarrhea H/O: HTN (hypertension) Abnormal TSH Arthritis Body mass index [BMI] 24.0-24.9, adult (05/20/19) Cellulitis and abscess of other specified site Chronic bilateral low back pain without sciatica Dysphagia, unspecified Hyperlipidemia, unspecified Hypothyroidism (acquired) Nonrheumatic aortic valve stenosis On buttermaker drug therapy Other chronic pain Primary osteoarthritis involving multiple joints Rash Skin lesion Family History Family History Father Cerebrovascular accident Alcoholism Mother Diabetes mellitus Sibling Cancer Hypertension Heart disease Other Cancer Other Family history of alcoholism Family history of arthritis Social History Social History Smoking packs per day: 3 Smoking cigarettes per day: 60.0 Years smoked: 16 Smoking pack-years: 48.00 Smoking status: Former smoker Tobacco type: cigarettes Smoking end date: 09/09/73 Alcohol intake: never Substance use: never Substance use type: does not use Lack of Transportation: No Lack of Food: Never True Current Housing: I Have Housing Concerned About Future Housing: No Difficulty Paying Gas/Electric Bills: No Difficulty Paying for Meds: No Currently Unemployed: No Education: Bachelor's Degree Difficulty w/ Childcare or Family Care: No Living arrangements: with family Spiritual care concerns: No Exam 2 Narrative: APPEARANCE: No acute distress, nontoxic, resting in bed EYES: EOMI HEENT: Normocephalic, atraumatic, OMM RESPIRATORY: No respiratory distress Clear to auscultation bilaterally with no rhonchi wheezing or rales. CARDIOVASCULAR: Regular rate and rhythm without murmurs rubs or gallops. ABDOMINAL: Soft, nontender, nondistended, no rebound or guarding : Tenderness to palpation superior to the right testicle over the epididymis, no overlying skin changes, no tenderness to the testicle, no hernias palpated MUSCULOSKELETAl: Moves all extremities. No clubbing, cyanosis or edema. NEURO: Awake and alert. Following commands, speech normal, no focal deficits SKIN:: Warm, dry. No rashes lesions or abrasions PSYCHIATRIC: Normal affect/mood, Course Vital Signs Vital signs: Vital Signs Temperature 97.3 F L 09/03/25 13:48 Pulse Rate 84 09/03/25 13:48 Respiratory Rate 20 09/03/25 13:48 Blood Pressure 155/56 H 09/03/25 13:48 Pulse Oximetry 98 09/03/25 13:48 Oxygen Delivery Room Air 09/03/25 13:48 Temperature 97.3 F L 09/03/25 13:48 Pulse Rate 75 09/03/25 19:54 Respiratory Rate 18 09/03/25 19:54 Blood Pressure 127/81 09/03/25 19:54 Pulse Oximetry 96 09/03/25 19:54 Oxygen Delivery Room Air 09/03/25 13:48 [facility] Narrative Medical decision making narrative: 85-year-old male Presenting for testicular pain and right lower quadrant abdominal pain. On initial evaluation patient was in no acute distress afebrile, hemodynamic stable. Differentials include but are not limited to: Epididymitis, UTI, appendicitis, constipation, cancer, low suspicion for testicular torsion Notable exam findings: Tenderness palpation superior to the right testicle, no tenderness to the testicle, no overlying skin changes I personally reviewed the patient's lab result. Notable lab findings: CBC without significant abnormalities. CMP without significant. UA consistent with a possible UTI. CT abdomen/pelvis showed a moderate hiatal hernia, otherwise no acute process Patient likely has epididymitis. He was given the 1st dose of Levaquin here in the ED. he was advised follow-up with his PCP regarding this. Regarding his hiatal hernia, he was advised follow-up with his GI, Dr. Garrison, for further evaluation and management. Patient and family were agreeable to this plan. Given strict return precautions. Differential Diagnosis Differential Diagnosis: Epididymitis, UTI, appendicitis, constipation, cancer, low suspicion for testicular torsion Lab Data 09/03/25 17:59 09/03/25 17:59 Labs: Lab Results 09/03/25 09/03/25 Range/Units 17:59 18:06 WBC 5.4 (4.5-10.0) K/mm3 RBC 4.19 L (4.6-6.20) M/mm3 Hgb 13.3 L (14.0-18.0) g/dL Hct 39.5 L (42.0-52.0) % MCV 94.3 (80-100) fl MCH 31.7 (26-34) pg MCHC 33.7 (32-36) g/dl RDW 13.1 (11.5-14.5) % Plt Count 215 (150-375) k/mm3 MPV 8.8 (7.4-10.4) fl Immature Gran % (Auto) 0.2 (0-0.5) % Neut % (Auto) 68.3 (45.5-73.1) % Lymph % (Auto) 18.0 L (18.3-44.2) % [place] % (Auto) 11.9 H (2.6-8.5) % Eos % (Auto) 0.9 (0-4.4) % Baso % (Auto) 0.7 (0.2-1.2) % Lymph # (Auto) 0.97 (0.9-3.2) K/mm3 [place] # (Auto) 0.6 (0.1-0.6) K/mm3 Eos # (Auto) 0.1 (0-0.3) K/mm3 Baso # (Auto) 0.0 (0.0-0.1) K/mm3 Abs Immat Gran (auto) 0.01 (0.00-0.031) K/mm3 Absolute Neuts (auto) 3.7 (1.3-6.7) K/mm3 Absolute Nucleated RBC 0.000 (0.0-0.012) K/mm3 Nucleated RBC % 0.0 (0.0-0.2) % Sodium 138 (137-145) mmol/L Potassium 4.4 (3.4-5.0) mmol/L Chloride 103 (98-107) mmol/L Carbon Dioxide 27 (22-30) mmol/L Anion Gap 8 (4-12) mmol/L BUN 24 H (9-20) mg/dL Creatinine 0.69 L (0.7-1.3) mg/dL Estim Creat Clear Calc 65 ml/min Estimated GFR > 60 (59 - ) Glucose 110 (65-110) mg/dL Calcium 9.6 (8.4-10.2) mg/dL Total Bilirubin 0.4 (0.2-1.3) mg/dL AST 42 (17-59) U/L ALT 36 (6-50) U/L Alkaline Phosphatase 65 (38-126) U/L Total Protein 7.4 (6.3-8.2) g/dL Albumin 4.7 (3.5-5.1) g/dL Urine Color Yellow (Yellow) Urine Appearance Clear (Clear) Urine pH 6.5 (5.0-9.0) Ur Specific [place] 1.023 (1.001-1.035) Urine Protein Negative (Negative) mg/dL Urine Glucose (UA) Negative (Negative) mg/dL Urine Ketones Negative (Negative) mg/dL Ur Blood (Man) Negative (Negative) Urine Nitrate Positive H (Negative) Urine Bilirubin Negative (Negative) Urine Urobilinogen 1.0 (<2.0) mg/dL Add Ur Microanalysis Reviewed Leukocyte Esterase Rfl Trace H (Negative) FREDERIC/UL Urine RBC 0-2 (0-2) /hpf Urine WBC 11-20 H (0-3) /hpf Ur Squamous Epith Cells None seen (Few) /hpf Urine Bacteria None seen /hpf Urine Casts 0-2 Imaging Data Radiologist's impression: ITS Impressions Abdomen/Pelvis CT 09/03/25 19:06 IMPRESSION: 1. No acute abdominal abnormality. 2: Moderate size hiatal hernia. 3: Chronic pancreatitis. Discharge Plan Discharge Clinical Impression: Acute epididymitis, Hernia, hiatal Patient Disposition: Home Condition: Stable Instructions: Antibiotic Form, Hiatal Hernia (ED), Epididymitis (ED) Additional Instructions: You likely have epididymitis, take Levaquin as prescribed. You were also found have a hiatal hernia, this may be the source of your reflux symptoms. You should follow-up with Dr. Garrison, GI, who you have seen previously, for further evaluation. He can also help you with your trouble swallowing. You may continue to take Tylenol and ibuprofen for pain. Continue were a jockstrap. Return to the ED for any new worsening symptoms were Patient Language: Welsh Prescriptions: New levofloxacin 500 mg tablet 500 mg PO DAILY 10 Days Qty: 10 0RF pantoprazole [Protonix] 40 mg tablet,delayed release (DR/EC) 40 mg PO HS 28 Days Qty: 28 0RF No Action omega-3 fatty acids [Fish Oil Concentrate] 1,000 mg capsule 1,000 mg PO DAILY aspirin [Adult Low Dose Aspirin] 81 mg tablet,delayed release (DR/EC) 81 mg PO DAILY cholecalciferol (vitamin D3) 125 mcg (5,000 unit) capsule 1,000 unit PO DAILY acetaminophen [Tylenol] 325 mg Capsule 650 mg PO BID albuterol sulfate 2.5 mg /3 mL (0.083 %) solution for nebulization See Rx Instructions .ROUTE .COMPLEX Qty: 360 3RF Dose Instruction: INHALE 1 VILE 4 TIMES DAILY NEEDED FOR SHORTNESS OF BREATH OR WHEEZING Rx Instructions: INHALE 1 VILE 4 TIMES DAILY NEEDED FOR SHORTNESS OF BREATH OR WHEEZING J44.9 COPD omeprazole 20 mg capsule,delayed release(DR/EC) 20 mg PO DAILY Qty: 90 0RF hydrochlorothiazide 25 mg tablet 25 mg PO DAILY Qty: 90 1RF Spiriva Respimat 2.5 mcg/actuation mist 2 inh inhalation QAM Qty: 4 5RF albuterol sulfate 90 mcg/actuation HFA aerosol inhaler 1 - 2 puff inhalation Q4-6H PRN (Reason: shortness of breath or wheezing) Qty: 8.5 2RF mirtazapine 15 mg tablet See Rx Instructions .ROUTE .COMPLEX Qty: 90 0RF Dose Instruction: Take 1 tablet by mouth once daily Rx Instructions: Take 1 tablet by mouth once daily tramadol 50 mg tablet 25 mg PO Q8H PRN (Reason: pain) Qty: 45 0RF losartan 50 mg tablet See Rx Instructions .ROUTE .COMPLEX Qty: 90 1RF Dose Instruction: Take 1 tablet by mouth once daily Rx Instructions: Take 1 tablet by mouth once daily rosuvastatin 5 mg tablet See Rx Instructions .ROUTE .COMPLEX Qty: 90 0RF Dose Instruction: Take 1 tablet by mouth once daily Rx Instructions: Take 1 tablet by mouth once daily hydrocortisone-pramoxine 2.5-1 % lotion 1 applic topical BID PRN (Reason: hemorrhoids) Qty: 59 0RF Rx Instructions: allow at least 3 hours between applications Follow-up/Referrals: Migel Miramontes MD [Primary Care Provider, Family Practice] Frantz Stafford MD [Physician, Gastroenterology]
[2025-09-03 17:58] VITALS: BP 160/71; PULSE 78; RESP 15; O2SAT 98
[2025-09-03] MEDS: KETOROLAC 15 MG/ML VIAL (*BKC) IV PUSH (18:07)
[2025-09-03] MEDS: SODIUM CHLORIDE 0.9% IV 1,000 ML 999 ML IV CONT (18:07)
[2025-09-03 18:08] LABS: Hematocrit 39.5 % (42.0-52.0); Hemoglobin 13.3 g/dL (14.0-18.0); Immature Granulocyte Percent A 0.2 % (0-0.5); Lymphocytes Absolute Auto 0.97 K/mm3 (0.9-3.2); Mean Corpuscular HGB Conc 33.7 g/dl (32-36); Mean Corpuscular Hemoglobin 31.7 pg (26-34); Mean Corpuscular Volume 94.3 fl (80-100); Nucleated Red Blood Cells Absolute Auto 0.000 K/mm3 (0.0-0.012); Nucleated Red Blood Cells Perc 0.0 % (0.0-0.2); Platelet Count Result 215 k/mm3 (150-375); Red Blood Count 4.19 M/mm3 (4.6-6.20); White Blood Count 5.4 K/mm3 (4.5-10.0)
[2025-09-03 18:15] LABS: Alanine Aminotransferase 36 U/L (6-50); Albumin Level 4.7 g/dL (3.5-5.1); Alkaline Phosphatase 65 U/L (38-126); Anion Gap 8 mmol/L (4-12); Aspartate Amino Transferase 42 U/L (17-59); Bilirubin,Total 0.4 mg/dL (0.2-1.3); Blood Urea Nitrogen 24 mg/dL (9-20); Calcium 9.6 mg/dL (8.4-10.2); Carbon Dioxide 27 mmol/L (22-30); Chloride 103 mmol/L (98-107); Estimated CRCL calculation 65 ml/min; Estimated Glomerular Filt Rate > 60; Glucose 110 mg/dL (65-110); Potassium 4.4 mmol/L (3.4-5.0); Sodium 138 mmol/L (137-145); Total Protein 7.4 g/dL (6.3-8.2)
[2025-09-03 18:55] LABS: Add Urine Microscopic? YES; Appearance Urine Clear (Clear); Glucose Urine UA Negative (Negative); Leukocyte Esterase Ur Trace LEU/UL (Negative); Need Manual Microscopic Reviewed; Nitrate Urine Positive (Negative); Non Pathogenic Casts 0-2; Specific Grav Ur 1.023 (1.001-1.035)
[2025-09-03 19:54] VITALS: BP 127/81; PULSE 75; RESP 18; O2SAT 96
== END 2025-09-03 21:16 | disposition home or self-care (01) ==
PROVIDERS: Emergency Provider Student in an Organized Health Care Education/Training Program; PCP Family Medicine
DX: N45.1 Epididymitis (principal); K44.9 Diaphragmatic hernia without obstruction or gangrene; I35.0 Nonrheumatic aortic (valve) stenosis; I10 Essential (primary) hypertension; E78.5 Hyperlipidemia, unspecified; E03.9 Hypothyroidism, unspecified; J44.9 Chronic obstructive pulmonary disease, unspecified; K21.9 Gastro-esophageal reflux disease without esophagitis; K86.1 Other chronic pancreatitis; M19.90 Unspecified osteoarthritis, unspecified site; Z87.891 Personal history of nicotine dependence
CPT/HCPCS: 36415; 74177; 80053; 81001; 85025; 87086; 87147; 87186; 96361; 96374; 99284; A9270; J1885; J7030; Q9967